=== PATIENT | male | born 1965 | race Caucasian/White ===

== ENCOUNTER → 2019-06-16 12:48 | Outpatient (CLI) | payer OTHER, SELFPAY ==
--- NOTE | 2019-06-17 16:05 | PM.PFT.1 ---
Pulmonary Function Test Referral & Results Date Patient Seen: 06/16/19 Requesting provider: Marie Garcia Indication: Dyspnea Results: The spirometry demonstrates an FVC of 5.98 L which is 104% of predicted. The FEV1 was measured at 4.89 L which is 111% of predicted. The FEV1/FVC ratio was 82 which is 106% of predicted. Following the administration of bronchodilator there was no appreciable change. Lung volumes show an SVC of 6.02 L which is 109% of predicted. The diffusing capacity was measured at 38.1 to which is 101% of predicted. The maximum voluntary ventilation was normal Interpretation: This study demonstrates normal pulmonary function
== END ==
PROVIDERS: PCP Family Medicine; Visit Provider Family Medicine
DX: R06.00 Dyspnea, unspecified (principal)
CPT/HCPCS: 94060; 94726; 94729

== ENCOUNTER → 2019-09-21 12:54 | Outpatient (CLI) | payer OTHER, SELFPAY ==
--- NOTE | 2019-09-21 12:57 | DI.RAD.S_ITS ---
PROCEDURE: XR LUMBAR SPINE MIN 4V INDICATIONS: Progressive axial low back pain TECHNIQUE: 5 views of the lumbar spine were acquired. COMPARISON: None. FINDINGS: Bones: 5 nonrib-bearing vertebrae are present. There is mild scoliotic bony alignment, angulated leftward at L2. No vertebral body compression fractures. There is moderate degenerative disc disease and facet osteoarthritis along the lumbosacral spine, best seen at L1-2 and L2-3. No suspicious bony lesions. Soft tissues: Overlying bowel gas pattern is normal. No suspicious soft tissue calcifications. Oblique images: No pars defects. IMPRESSION: Moderate degenerative disc disease and facet osteoarthritis along the lumbosacral spine, most prominent at the upper LS spine with mild associated levoscoliosis centered in this area. No trauma found. Dictated by: Kendell Parada M.D. on 09/21/2019 at 14:29 Approved by: Kendell Parada M.D. on 09/21/2019 at 14:30
== END ==
PROVIDERS: PCP Family Medicine; Visit Provider Physical Medicine & Rehabilitation
DX: M54.5 Low back pain (principal); M47.816 Spondylosis without myelopathy or radiculopathy, lumbar region; M47.817 Spondylosis without myelopathy or radiculopathy, lumbosacral region; M51.36 Other intervertebral disc degeneration, lumbar region; M41.86 Other forms of scoliosis, lumbar region; Z98.890 Other specified postprocedural states; Z87.19 Personal history of other diseases of the digestive system
CPT/HCPCS: 72110; 99214

== ENCOUNTER 2020-03-30 22:38 | Emergency (ER) | payer OTHER, SELFPAY ==
--- NOTE | 2020-03-30 22:51 | DI.CT.S_ITS ---
PROCEDURE: CT KIDNEY URETER BLADDER (KUB) INDICATIONS: Left flank pain TECHNIQUE: Noncontrast 5 mm thick sections acquired from the diaphragms to the symphysis. 5 mm thick coronal and sagittal reformats were then performed. For radiation dose reduction, the following was used: automated exposure control, adjustment of mA and/or kV according to patient size. COMPARISON: [facility], CR, XR LUMBAR SPINE MIN 4V, 09/21/2019, 13:06. [facility], , CT ABDOMEN/PELVIS WITH CONTRAST, 09/09/2018, 13:14. FINDINGS: Image quality: Excellent. Lung bases: Lung bases are clear. Heart size is normal. Urinary system: There is a 2 mm obstructing stone seen involving the distal left ureter at the left ureterovesicular junction. There is mild left-sided hydronephrosis and hydroureter. Mild left-sided perinephric fat stranding is seen. No nonobstructing stones are seen involving either kidney. Both kidneys are normal in size. Bladder wall thickness is normal; no calcified bladder stones. Other solid organs: Liver is normal in size. Gallbladder wall is not thickened. Pancreas is normal in contours. Spleen is normal in size. No adrenal nodules. Peritoneum and bowel: Unenhanced bowel loops demonstrate normal wall thickness and caliber. No free fluid or air. A normal appendix is incidentally noted. Nodes and vessels: No retroperitoneal or mesenteric adenopathy by size criteria. Aorta and inferior vena cava are normal in caliber. Abdominal wall: No ventral hernias. Pelvis: No free pelvic fluid. No inguinal hernias or adenopathy. Bones: No suspicious bony lesions. No vertebral body compression fractures. Moderate levoconvex lumbar scoliosis is seen. Degenerative changes are seen, which are most prominent involving the lumbar spine. IMPRESSION: 2 mm obstructing stone seen involving the left ureterovesicular junction, with associated left-sided hydroureter, hydronephrosis, and perinephric fat stranding. No nonobstructing kidney stones are seen. Incidental note is made of: Normal appendix Moderate levoconvex lumbar scoliosis. Note: No significant discrepancy from the preliminary report. Dictated by: Adam Hart M.D. on 03/31/2020 at 7:31 Approved by: Adam Hart M.D. on 03/31/2020 at 7:35
[2020-03-30] MEDS: KETOROLAC 60 MG/2 ML VIAL 15 MG IV (23:06)
[2020-03-30] MEDS: ONDANSETRON 4 MG/2 ML INJ IV (23:06)
[2020-03-30] MEDS: HYDROMORPHONE 0.5 MG INJ IV ×2 (23:07→23:13)
[2020-03-30 23:10] LABS: Add Manual Diff / Slide Review NO; Basophils Absolute Auto 400 /uL (0-100); Eosinophils Absolute Auto 200 /uL (0-450); Eosinophils Percent Auto 2.3 % (2-4); Hematocrit 43.6 % (41-53); Lymphocytes Absolute Auto 2000 /uL (1100-4500); Lymphocytes Percent Auto 18.5 % (25-40); Mean Corpuscular HGB Conc 34.4 % (30-36); Mean Corpuscular Hemoglobin 30.8 PG (26-34); Mean Corpuscular Volume 89.6 fL (80-100); Monocytes Absolute Auto 1000 /uL (0-900); Monocytes Percent Auto 9.1 % (3-14); Neutrophils Absolute Auto 7200 /uL (1500-7000); Neutrophils Percent Auto 66.1 % (50-75); Platelet Count 303 X10^3/uL (150-400); Red Blood Cell Count 4.86 X10^6/uL (4.5-5.9); Red Cell Distribution Width 12.7 % (11.6-14.8); White Blood Cell Count 10.9 X10^3/uL (4.5-11.0)
[2020-03-30] MEDS: SODIUM CHLORIDE 0.9% 1,000 ML 1000 ML IV (23:15)
[2020-03-30 23:17] VITALS: BP 117/72; PULSE 62; RESP 18; TEMP 36.2; O2SAT 100; BMI 32.1
[2020-03-30 23:28] VITALS: PULSE 63; O2SAT 93
[2020-03-30 23:29] LABS: Lipase 92 U/L (23-300)
[2020-03-30 23:30] VITALS: PULSE 67; O2SAT 95
[2020-03-30 23:37] VITALS: BP 145/80; PULSE 62; O2SAT 99
[2020-03-30 23:42] LABS: Alanine Aminotransferase 263 IU/L (<50); Albumin 4.5 g/dL (3.5-5.0); Albumin Globulin Ratio 1.9 (1.0-2.8); Alkaline Phosphatase 88 U/L (38-126); Aspartate Aminotransferase 80 IU/L (17-59); BUN Creatinine Ratio 21.8 (6-22); Bilirubin Total 0.7 mg/dL (0.2-1.3); Blood Urea Nitrogen 22 mg/dL (9-20); Calcium 9.5 mg/dL (8.4-10.2); Carbon Dioxide 26 mmol/L (22-32); Chloride 105 mmol/L (98-107); Estimated Glomerular Filt Rate > 60.0 mL/min (>60); Globulin 2.4 g/dL (1.7-4.1); Glucose 121 mg/dL (70-100); HEMOLYSIS 21 (0-50); Potassium 3.4 mmol/L (3.4-5.1); Sodium 137 mmol/L (137-145); Total Protein 6.9 g/dL (6.3-8.2)
[2020-03-30] MEDS: HYDROMORPHONE 1 MG INJ IV (23:56)
[2020-03-31] VITALS (7 sets, daily range): BP systolic 130–158; BP diastolic 74–88; PULSE 64–81; O2SAT 95–100
--- NOTE | 2020-03-31 01:37 | ED.ABDPAIN ---
HPI - Abdominal Pain General Chief Complaint: Abdominal Pain Stated Complaint: left side lwr abdominal pain, vomiting,hard stool Time Seen by Provider: 03/30/20 22:50 Source: patient and family Mode of arrival: Wheelchair Limitations: no limitations History of Present Illness HPI narrative: 54-year-old man with a history of chronic back pain and hypertension with acute onset severe left flank and left lower quadrant abdominal pain approximately 2 hours prior to arrival. It is not associated with trauma, fever, chills, dysuria, diarrhea, chest pain. He is having shortness of breath but that is related to the severity of the pain. Related Data Home Medications Medication Instructions Recorded Confirmed VirMax PO DAILY 09/21/19 acetaminophen 500 mg capsule 500 mg PO TID-QID PRN cap 09/21/19 09/21/19 ascorbic acid (vitamin C) 250 mg 240 mg PO DAILY tab 09/21/19 09/21/19 chewable tablet coenzyme Q10 75 mg capsule 100 mg PO DAILY cap 09/21/19 09/21/19 fiber well 5 gram PO DAILY 09/21/19 glucos sul [id number] PO DAILY 09/21/19 09/21/19 hydrochlorothiazide 12.5 mg capsule 12.5 mg PO DAILY 09/21/19 09/21/19 losartan 50 mg tablet 50 mg PO DAILY 09/21/19 09/21/19 mecobalamin (vitamin B12) 1,000 1,000 mcg SL DAILY 09/21/19 09/21/19 mcg disintegrating tablet,sublingual multivitamin 1 cap PO DAILY 09/21/19 09/21/19 Previous Rx's Medication Instructions Recorded diclofenac sodium 75 mg 75 mg PO BID #60 tab 01/09/20 tablet,delayed release oxycodone-acetaminophen 1 tab PO Q4-6H PRN #20 tab 03/31/20 tamsulosin 0.4 mg PO DAILY #30 cap 03/31/20 Allergies Allergy/AdvReac Type Severity Reaction Status Date / Time No Known Drug Allergies Allergy Verified 03/30/20 23:10 Review of Systems Review of Systems Narrative: Pertinent positive and negative findings as per HPI Remainder of review of systems is otherwise unremarkable for Constitutional: Fevers, chills, weakness ENT: No sore throat, neck pain, ear pain CV: Chest pain, palpitations, dyspnea on exertion Respiratory: Cough, wheeze, dyspnea GI: Nausea, vomiting, diarrhea, change in bowel habits, black or bloody stools Patient History Medical History Facet arthropathy, lumbosacral (Acute) Scoliosis (Acute) Surgical History History of hernia repair (Acute) History of hernia surgery (Acute) History of thumb surgery (Acute) History of wisdom tooth extraction (Acute) Status post excision of lipoma (Acute) Status post right foot surgery (Acute) Family History Father No problems noted. Mother Hypertension Social History marital status: Smoking Status: Former smoker alcohol intake: former substance use type: does not use Smoking Status: Former smoker Substance Use Type: does not use Exam Narrative Exam Narrative: General: Healthy appearing, severe distress unable to participate in history due to pain Neck: supple Respiratory: Lungs are clear to auscultation, no wheezing no rales no rhonchi. Full and symmetrical air movement Cardiac: Regular rate and rhythm no murmurs no bruits Abdomen: Soft, mildly distended, absent bowel tones, left flank pain with left lower quadrant pain. No rebound or guarding Skin: Diaphoretic, no rashes Neurologic: Grossly neurologically intact with no obvious asymmetries or abnormalities Extremities: No trauma, well perfused Initial Vital Signs Initial Vital Signs: Vital Signs Temperature 97.2 F L 03/30/20 23:17 Pulse Rate 62 03/30/20 23:17 Respiratory Rate 18 03/30/20 23:17 Blood Pressure 117/72 03/30/20 23:17 Pulse Oximetry 100 03/30/20 23:17 Course Orders Ordered: ED Orders 03/30/20 22:51 CT kidney ureter bladder (KUB) Stat 03/30/20 23:00 Complete Blood Count AUTO DIFF Stat Comprehensive Metabolic Panel Stat Lipase Stat Hydromorphone HCl (Dilaudid) 0.5 mg IV PRN PRN PRN Reason: Pain, Moderate (4-6) Last Admin: 03/30/20 23:13 Dose: 0.5 mg Documented by: Admin: 03/30/20 23:07 Dose: 0.5 mg Documented by: JONG Discontinued Medications Hydromorphone HCl (Dilaudid) 1 mg IV NOW ONE Stop: 03/30/20 23:52 Last Admin: 03/30/20 23:56 Dose: 1 mg Documented by: JONG Hydromorphone HCl (Dilaudid) 1 mg IV NOW ONE Stop: 03/31/20 01:29 Last Admin: 03/31/20 01:38 Dose: 1 mg Documented by: JONG Hydromorphone HCl (Dilaudid) 1 mg IV NOW ONE Stop: 03/31/20 01:33 Last Admin: 03/31/20 01:41 Dose: Not Given Documented by: JONG Sodium Chloride (Normal Saline 0.9%) 1,000 mls @ 1,000 mls/hr IV BOLUS ONE Stop: 03/30/20 23:49 Last Infusion: 03/31/20 00:37 Dose: 0 mls/hr Documented by: Admin: 03/30/20 23:15 Dose: 1,000 mls/hr Documented by: JONG Ketorolac Tromethamine (Toradol) 15 mg IV NOW ONE Stop: 03/30/20 22:51 Last Admin: 03/30/20 23:06 Dose: 15 mg Documented by: JONG Ondansetron HCl (Zofran) 4 mg IV NOW ONE Stop: 03/30/20 22:51 Last Admin: 03/30/20 23:06 Dose: 4 mg Documented by: JONG Ondansetron HCl (Zofran) 4 mg IV NOW ONE Stop: 03/31/20 01:39 Last Admin: 03/31/20 01:40 Dose: 4 mg Documented by: JONG Oxycodone/Acetaminophen (Percocet 5/325) 2 tab PO NOW ONE Stop: 03/31/20 02:10 Last Admin: 03/31/20 02:12 Dose: 2 tab Documented by: JONG Tamsulosin HCl (Flomax) 0.4 mg PO NOW ONE Stop: 03/31/20 01:33 Last Admin: 03/31/20 01:38 Dose: 0.4 mg Documented by: JONG Vital Signs Vital signs: Vital Signs - 8 hr 03/30/20 23:17 03/30/20 23:28 03/30/20 23:30 Temperature 97.2 F L Pulse Rate 62 63 67 Respiratory Rate 18 Blood Pressure 117/72 Pulse Oximetry 100 93 95 03/30/20 23:37 03/31/20 00:00 03/31/20 00:30 Temperature Pulse Rate 62 65 65 Respiratory Rate Blood Pressure 145/80 H 132/85 141/82 H Pulse Oximetry 99 95 100 03/31/20 01:00 03/31/20 01:30 03/31/20 02:00 Temperature Pulse Rate 64 81 69 Respiratory Rate Blood Pressure 144/88 H 158/80 H 130/74 Pulse Oximetry 100 100 96 03/31/20 02:30 Temperature Pulse Rate 65 Respiratory Rate Blood Pressure 131/75 Pulse Oximetry 96 MDM - Abdominal Pain Medical Records Attestation: I reviewed the patient's medical records. Lab Data Attestation: I reviewed the patient's lab results. Result diagrams: 03/30/20 23:00 03/30/20 23:00 Labs: Lab Results 03/30/20 03/30/20 03/30/20 Range/Units 23:00 23:00 23:00 WBC 10.9 (4.5-11.0) X10^3/uL RBC 4.86 (4.5-5.9) X10^6/uL Hgb 15.0 (13.5-17.5) g/dL Hct 43.6 (41-53) % MCV 89.6 (80-100) fL MCH 30.8 (26-34) PG MCHC 34.4 (30-36) % RDW 12.7 (11.6-14.8) % Plt Count 303 (150-400) X10^3/uL Neut % (Auto) 66.1 (50-75) % Lymph % (Auto) 18.5 L (25-40) % [place] % (Auto) 9.1 (3-14) % Eos % (Auto) 2.3 (2-4) % Baso % (Auto) 4.0 H (0-2) % Neut # (Auto) 7200 H (4964-6982) /uL Lymph # (Auto) 2000 (4960-6437) /uL [place] # (Auto) 1000 H (0-900) /uL Eos # (Auto) 200 (0-450) /uL Baso # (Auto) 400 H (0-100) /uL Sodium 137 (137-145) mmol/L Potassium 3.4 (3.4-5.1) mmol/L Chloride 105 (98-107) mmol/L Carbon Dioxide 26 (22-32) mmol/L BUN 22 H (9-20) mg/dL Creatinine 1.01 (0.66-1.25) mg/dL Estimated GFR > 60.0 (>60) mL/min BUN/Creatinine Ratio 21.8 (6-22) Glucose 121 H (70-100) mg/dL Calcium 9.5 (8.4-10.2) mg/dL Total Bilirubin 0.7 (0.2-1.3) mg/dL AST 80 H (17-59) IU/L ALT 263 H (<50) IU/L Alkaline Phosphatase 88 (38-126) U/L Total Protein 6.9 (6.3-8.2) g/dL Albumin 4.5 (3.5-5.0) g/dL Globulin 2.4 (1.7-4.1) g/dL Albumin/Globulin Ratio 1.9 (1.0-2.8) Lipase 92 (23-300) U/L Imaging Data CT scan - abdomen/pelvis: Radiologist's Impression: Mild left hydroureteronephrosis secondary to a 2 mm calculus in the distal left ureter Electronically signed March 31, 2020 12:[address] Faina Machado [facility] Narrative Medical decision making narrative: 54-year-old gentleman presents with acute severe left flank left lower quadrant pain with CT scan consistent with ureteral stone. Pain is controlled with fluids, Toradol, Zofran and IV narcotics. There is no evidence of acute infection. He is able to eat and drink. He is safe for home discharge. Will send mom with a strainer and prescription for pain medications as well as follow-up with his primary care physician recommended. Safe for home discharge Discharge Plan Departure Patient Disposition: Home Clinical Impression: Ureterolithiasis Instructions: DI for Kidney Stones Activity Restrictions/Additional Instructions: Thank you for coming in today You have a 2 mm kidney stone on the left side. It is almost ready to drop into your bladder. There are no signs of infection and no signs of kidney dysfunction. Please continue the diclofenac that you are currently using for back pain as prescribed by Dr. Bailey. For pain not controlled by this, you can use 1-2 Percocet every 4-6 hours. Percocet is a narcotic and will cause constipation. Make sure your taking extra fiber or using a stool softener daily to prevent constipation. I am going to put you on Flomax, 0.4 mg daily to try and help the stone pass more easily. 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 Please strain your urine over the next couple of days until you see the kidney stone come out. At that point you can stop the Flomax. If you have severe recurrent pain with emesis and are unable to take your oral pain medication it would be appropriate to return to the emergency department Please follow-up with your primary care physician Prescriptions: New oxycodone-acetaminophen 5-300 mg tablet 1 tab PO Q4-6H PRN (Reason: pain) Qty: 20 RF: 0 tamsulosin 0.4 mg capsule 0.4 mg PO DAILY Qty: 30 RF: 0 No Action diclofenac sodium 75 mg tablet,delayed release (DR/EC) 75 mg PO BID Qty: 60 RF: 2 hydrochlorothiazide 12.5 mg capsule 12.5 mg PO DAILY RF: 0 losartan 50 mg tablet 50 mg PO DAILY RF: 0 acetaminophen 500 mg capsule 500 mg PO TID-QID PRNRF: 0 fiber well 5 gram PO DAILY RF: 0 multivitamin Capsule 1 cap PO DAILY RF: 0 mecobalamin (vitamin B12) 1,000 mcg tablet,disintegrating 1,000 mcg SL DAILY RF: 0 ascorbic acid (vitamin C) 250 mg tablet,chewable 240 mg PO DAILY RF: 0 Ultra CoQ10 75 mg capsule 100 mg PO DAILY RF: 0 glucos sul [id number]-[id number]-C-Mn PO DAILY RF: 0 VirMax PO DAILY RF: 0 Referrals: Marie Garcia MD [Primary Care Provider] -
[2020-03-31] MEDS: HYDROMORPHONE 1 MG INJ IV (01:38)
[2020-03-31] MEDS: TAMSULOSIN 0.4 MG CAPSULE PO (01:38)
[2020-03-31] MEDS: ONDANSETRON 4 MG/2 ML INJ IV (01:40)
[2020-03-31] MEDS: OXYCODONE/ACETAMINOPHEN 5/325 TABLET 2 TAB PO (02:12)
== END 2020-03-31 03:38 | disposition home or self-care (01) ==
PROVIDERS: Emergency Provider Emergency Medicine; PCP Family Medicine
DX: N20.1 Calculus of ureter (principal); R06.02 Shortness of breath; I10 Essential (primary) hypertension
CPT/HCPCS: 36415; 74176; 80053; 83690; 85025; 96361; 96374; 96375; 96376; 99284; J1170; J1885; J2405

== ENCOUNTER 2022-03-31 21:32 | Emergency (ER) | payer OTHER, SELFPAY ==
[2022-03-31 21:40] VITALS: BP 132/87; PULSE 69; RESP 16; TEMP 36.6; O2SAT 98; BMI 32.1
--- NOTE | 2022-03-31 21:43 | ED_ITS ---
HPI - Chest Pain General Chief Complaint: Chest Pain Stated Complaint: Chest Pain, radiates to right arm and back Time Seen by Provider: 03/31/22 21:43 History of Present Illness HPI narrative: 56-year-old male former smoker without any significant chronic medical problems presents with a chief complaint of about 2 weeks of right-sided chest pain which radiates into his shoulder and back. He denies any dizziness, weakness or lightheadedness. Denies unexplained diaphoresis, nausea or vomiting. He denies any increased symptoms with exertion, stating the only worsening of his pain is associated with turning his neck to the right or lifting his shoulder. He denies fever or chills. He states he had a similar occurrence a while back but it was the left side of his chest. He had received a referral to Cardiology but has yet to follow up. He denies any recent travel, history of blood clot or known cancer. Related Data Home Medications Medication Instructions Recorded Confirmed VirMax PO DAILY 09/21/19 acetaminophen 500 mg capsule 500 mg PO TID-QID PRN 09/21/19 09/21/19 ascorbic acid (vitamin C) 250 mg 240 mg PO DAILY 09/21/19 09/21/19 chewable tablet coenzyme Q10 75 mg capsule (Ultra 100 mg PO DAILY 09/21/19 09/21/19 CoQ10) fiber well 5 gram PO DAILY 09/21/19 glucos sul [id number] PO DAILY 09/21/19 09/21/19 [Glucosamine Chondroitin] hydrochlorothiazide 12.5 mg capsule 12.5 mg PO DAILY 09/21/19 09/21/19 losartan 50 mg tablet 50 mg PO DAILY 09/21/19 09/21/19 mecobalamin (vitamin B12) 1,000 1,000 mcg sublingual DAILY 09/21/19 09/21/19 mcg disintegrating tablet,sublingual multivitamin 1 cap PO DAILY 09/21/19 09/21/19 Previous Rx's Medication Instructions Recorded oxycodone-acetaminophen 5 mg-300 1 tab PO Q4-6H PRN pain #20 tabs 03/31/20 mg tablet oxycodone-acetaminophen 5 mg-325 1 tab PO Q4-6H PRN pain #20 tabs 03/31/20 mg tablet (Percocet) tamsulosin 0.4 mg capsule 0.4 mg PO DAILY #30 caps 03/31/20 diclofenac sodium 75 mg 75 mg PO BID #60 tabs 07/02/20 tablet,delayed release cyclobenzaprine 10 mg tablet 10 mg PO TID PRN muscle spasm #14 04/01/22 tabs ketorolac 10 mg tablet 10 mg PO Q6H PRN pain #14 tabs 04/01/22 Allergies Allergy/AdvReac Type Severity Reaction Status Date / Time No Known Drug Allergies Allergy Verified 03/30/20 23:10 Review of Systems Review of Systems Narrative: GENERAL: Denies chills, fatigue, malaise, fever, sweats. HEENT: Denies sinus pain, ear pain, sore throat, difficulty swallowing, dizziness. RESPIRATORY: See HPI CARDIOVASCULAR: See HPI GASTROINTESTINAL: Denies nausea, vomiting, abdominal pain, diarrhea, constipa tion, melena. : Denies dysuria, frequency, incontinence, hematuria, urinary retention. MUSCULOSKELETAL: denies weakness, joint pain, or bony pain SKIN: Denies rash, skin lesions, or other NEUROLOGIC: Denies weakness, headache, numbness, change in speech, confusion, seizures, incoordination. PSYCHIATRIC: No concerning psychosocial issues. 12 point review of systems is negative except for those stated above Patient History Medical History (Updated 04/16/22 @ 00:00 by ) Facet arthropathy, lumbosacral Scoliosis Surgical History History of hernia repair History of hernia surgery History of thumb surgery History of wisdom tooth extraction Status post excision of lipoma Status post right foot surgery Family History Father No problems noted. Mother Hypertension Social History marital status: Smoking Status: Former smoker alcohol intake: former substance use type: does not use Smoking Status: Former smoker Substance Use Type: does not use Exam Narrative Exam Narrative: GENERAL: [56] year old patient appears stated age. Well-developed patient, in mild distress. HEAD: Atraumatic. Normocephalic. EYES: Pupils equal round and reactive. Extraocular motions intact. No scleral icterus. No injection or drainage. ENT: Nose without bleeding, purulent drainage. Throat without erythema, ton sillar hypertrophy or exudate. Airway patent. NECK: Trachea midline. Non tender CARDIOVASCULAR: Regular rate and rhythm without murmurs, gallops, or rubs. RESPIRATORY: Clear to auscultation. Breath sounds equal bilaterally. No wheezes, rales, or rhonchi. GASTROINTESTINAL: Abdomen soft, non-tender, nondistended. EXTREMITIES: No edema or joint tenderness. BACK: Nontender without deformity or crepitance. No flank tenderness. NEURO: AOx3. SKIN: No rash or erythema of visible areas Initial Vital Signs Initial Vital Signs: Vital Signs Temperature 97.9 F 03/31/22 21:40 Pulse Rate 69 03/31/22 21:40 Respiratory Rate 16 03/31/22 21:40 Blood Pressure 132/87 03/31/22 21:40 Pulse Oximetry 98 03/31/22 21:40 Oxygen Delivery Method 03/31/22 21:40 Scores HEART Score Heart Score history: Slightly Suspicious Heart Score EKG: Normal Heart Score Age: 45-64 years old Heart Score risk factors: No known risk factors Heart Score troponin: < or = to normal limit Heart Score Total: 1 Course Orders Ordered: Discontinued Medications Morphine Sulfate (Morphine 4 Mg/Ml Inj) 4 mg IV NOW ONE Stop: 03/31/22 22:12 Last Admin: 03/31/22 22:15 Dose: 4 mg Documented By: DIPESH Nitroglycerin (Nitroglycerin 0.4 Mg Sl Tab) 0.4 mg SL NOW ONE Stop: 04/01/22 02:56 Last Admin: 04/01/22 03:13 Dose: 0.4 mg Documented By: LALITHA Ondansetron HCl (Ondansetron 4 Mg/2 Ml Inj) 4 mg IV NOW ONE Stop: 03/31/22 22:12 Last Admin: 03/31/22 22:15 Dose: 4 mg Documented By: DIPESH Vital Signs Vital signs: Vital Signs - 8 hr 03/31/22 22:19 03/31/22 22:47 03/31/22 23:00 Pulse Rate 71 68 72 Respiratory Rate 15 18 Blood Pressure 125/85 Pulse Oximetry 100 92 03/31/22 23:01 03/31/22 23:01 03/31/22 23:30 Pulse Rate 71 Respiratory Rate 24 Blood Pressure 125/83 134/80 Pulse Oximetry 93 03/31/22 23:30 04/01/22 00:00 04/01/22 00:01 Pulse Rate 63 84 67 Respiratory Rate 14 26 H 23 Blood Pressure Pulse Oximetry 99 97 04/01/22 00:02 04/01/22 00:02 04/01/22 00:30 Pulse Rate 64 61 Respiratory Rate 17 13 Blood Pressure 157/89 H Pulse Oximetry 100 98 04/01/22 01:00 04/01/22 01:30 04/01/22 02:00 Pulse Rate 61 60 65 Respiratory Rate 15 14 Blood Pressure Pulse Oximetry 99 99 98 04/01/22 02:30 04/01/22 03:00 04/01/22 03:14 Pulse Rate 82 63 Respiratory Rate 21 25 H Blood Pressure 135/80 Pulse Oximetry 98 98 04/01/22 03:14 04/01/22 03:25 04/01/22 03:25 Pulse Rate 61 Respiratory Rate 14 15 Blood Pressure 119/71 Pulse Oximetry 98 97 04/01/22 03:30 04/01/22 04:00 04/01/22 04:00 Pulse Rate 63 58 L Respiratory Rate 16 16 Blood Pressure 128/79 Pulse Oximetry 99 99 04/01/22 04:30 04/01/22 05:00 04/01/22 05:30 Pulse Rate 54 L 55 L 55 L Respiratory Rate 12 13 12 Blood Pressure Pulse Oximetry 98 98 97 MDM - Chest Pain Lab Data Result diagrams: 03/31/22 22:08 03/31/22 22:08 Labs: Lab Results 03/31/22 03/31/22 03/31/22 Range/Units 22:08 22:08 22:08 WBC 10.8 (4.5-11.0) X10^3/uL RBC 4.92 (4.5-5.9) X10^6/uL Hgb 15.2 (13.5-17.5) g/dL Hct 43.7 (41-53) % MCV 88.9 (80-100) fL MCH 31.0 (26-34) PG MCHC 34.8 (30-36) % RDW 12.7 (11.6-14.8) % Plt Count 312 (150-400) X10^3/uL Neut % (Auto) 50.0 (50-75) % Lymph % (Auto) 37.1 (25-40) % Grady % (Auto) 9.2 (3-14) % Eos % (Auto) 3.0 (2-4) % Baso % (Auto) 0.7 (0-2) % Neut # (Auto) 5400 (2623-8247) /uL Lymph # (Auto) 4000 (3564-0148) /uL Grady # (Auto) 1000 H (0-900) /uL Eos # (Auto) 300 (0-450) /uL Baso # (Auto) 100 (0-100) /uL D-Dimer < 200 (<230) ng/mL Sodium 139 (137-145) mmol/L Potassium 3.4 (3.4-5.1) mmol/L Chloride 103 (98-107) mmol/L Carbon Dioxide 26 (22-32) mmol/L BUN 13 (9-20) mg/dL Creatinine 0.79 (0.66-1.25) mg/dL Estimated GFR > 60 (>60) mL/min BUN/Creatinine Ratio 16.5 (6-22) Glucose 100 (70-100) mg/dL Calcium 9.0 (8.4-10.2) mg/dL Magnesium 2.2 (1.6-2.3) mg/dL Total Bilirubin 0.5 (0.2-1.3) mg/dL AST 34 (17-59) IU/L ALT 45 (<50) IU/L Alkaline Phosphatase 81 (38-126) U/L Total Creatine Kinase 346 H (55-170) U/L CK-MB (CK-2) 7.61 H (<2.37) ng/mL CK-MB (CK-2) Rel Index 2.2 (1.5-5.0) % Troponin I 0.016 (0.01-0.034) ng/mL Total Protein 7.4 (6.3-8.2) g/dL Albumin 4.6 (3.5-5.0) g/dL Globulin 2.8 (1.7-4.1) g/dL Albumin/Globulin Ratio 1.6 (1.0-2.8) Lipase 63 (23-300) U/L 04/01/22 04/01/22 Range/Units 00:22 05:10 WBC (4.5-11.0) X10^3/uL RBC (4.5-5.9) X10^6/uL Hgb (13.5-17.5) g/dL Hct (41-53) % MCV (80-100) fL MCH (26-34) PG MCHC (30-36) % RDW (11.6-14.8) % Plt Count (150-400) X10^3/uL Neut % (Auto) (50-75) % Lymph % (Auto) (25-40) % Grady % (Auto) (3-14) % Eos % (Auto) (2-4) % Baso % (Auto) (0-2) % Neut # (Auto) (9436-7071) /uL Lymph # (Auto) (7758-7788) /uL Grady # (Auto) (0-900) /uL Eos # (Auto) (0-450) /uL Baso # (Auto) (0-100) /uL D-Dimer (<230) ng/mL Sodium (137-145) mmol/L Potassium (3.4-5.1) mmol/L Chloride (98-107) mmol/L Carbon Dioxide (22-32) mmol/L BUN (9-20) mg/dL Creatinine (0.66-1.25) mg/dL Estimated GFR (>60) mL/min BUN/Creatinine Ratio (6-22) Glucose (70-100) mg/dL Calcium (8.4-10.2) mg/dL Magnesium (1.6-2.3) mg/dL Total Bilirubin (0.2-1.3) mg/dL AST (17-59) IU/L ALT (<50) IU/L Alkaline Phosphatase (38-126) U/L Total Creatine Kinase 311 H 246 H (55-170) U/L CK-MB (CK-2) 6.72 H 5.87 H (<2.37) ng/mL CK-MB (CK-2) Rel Index 2.2 2.4 (1.5-5.0) % Troponin I 0.014 0.015 (0.01-0.034) ng/mL Total Protein (6.3-8.2) g/dL Albumin (3.5-5.0) g/dL Globulin (1.7-4.1) g/dL Albumin/Globulin Ratio (1.0-2.8) Lipase (23-300) U/L ECG Data Interpretation: MDM Narrative Medical decision making narrative: Multiple causes of chest pain considered including NV, PE, pneumothorax, pneumonia, aortic dissection, and pleurisy. Patient reports no radiation, no diaphoresis, no provocation with exertion, and no vomiting Heart score is low, multiple EKGs showed no occlusive findings, 3 troponins negative, furthermore pain has been present for 2 weeks and is reproducible when the patient turns his head to the right or lays on his right side. Pulmonary embolism considered but thought unlikely given lack of classic history, physical or findings on imaging. Dissection and aneurysm considered but no evidence on imaging. Patient's symptoms improved over duration of stay with above-stated therapies. Findings and discharge diagnosis discussed with patient/family followed by verbalization of understanding Return precautions discussed with patient/family whom verbalize understanding. Discharge Plan Departure Patient Disposition: Home Clinical Impression: Atypical chest pain Instructions: DI for Atypical Chest Pain Activity Restrictions/Additional Instructions: *You have been diagnosed with [atypical chest pain. As we discussed your history and physical exam as well as multiple EKGs, labs and imaging would suggest against classic cardiac ischemia, blood clot in your chest, aneurysm, dissection or other significant or life-threatening diagnosis that would require a specific or immediate intervention] *What to do: *Please continue to take your regular medications as directed. [x ] New medication prescriptions sent to your pharmacy: [DOD ] [ ] New medication written as a paper prescription [ ] No new medications given *Please follow up with your primary care provider in 2-3 days, call for an appointment. Let them know you were seen in the Emergency Department and that we ask that you be seen in follow up. We will electronically transmit a record of today's note if your PCP is in our system *If you do not have a primary care provider please contact the [facility] Resource line at [phone]. They will ask some questions about your medical history and help get you set up with a doctor in the community. *Return to Emergency Department if you should have any new, worsening or concerning symptoms, such as [fever greater than 101 F, shaking chills, worsening pain, persistent vomiting or other bothersome symptoms] Prescriptions: New ketorolac 10 mg tablet 10 mg PO Q6H PRN (Reason: pain) Qty: 14 0RF cyclobenzaprine 10 mg tablet 10 mg PO TID PRN (Reason: muscle spasm) Qty: 14 0RF No Action diclofenac sodium 75 mg tablet,delayed release (DR/EC) 75 mg PO BID Qty: 60 2RF oxycodone-acetaminophen 5-300 mg tablet 1 tab PO Q4-6H PRN (Reason: pain) Qty: 20 0RF tamsulosin 0.4 mg capsule 0.4 mg PO DAILY Qty: 30 0RF oxycodone-acetaminophen [Percocet] 5-325 mg tablet 1 tab PO Q4-6H PRN (Reason: pain) Qty: 20 0RF hydrochlorothiazide 12.5 mg capsule 12.5 mg PO DAILY losartan 50 mg tablet 50 mg PO DAILY acetaminophen 500 mg capsule 500 mg PO TID-QID PRN fiber well 5 gram PO DAILY multivitamin Capsule 1 cap PO DAILY mecobalamin (vitamin B12) 1,000 mcg tablet,disintegrating 1,000 mcg SL DAILY ascorbic acid (vitamin C) 250 mg tablet,chewable 240 mg PO DAILY Ultra CoQ10 75 mg capsule 100 mg PO DAILY glucos sul [id number] PO DAILY VirMax PO DAILY Referrals: Marie Garcia MD [Primary Care Provider] - Visit Report Forms: Patient Portal/API
--- NOTE | 2022-03-31 22:12 | DI.CT.S_ITS ---
PROCEDURE: CT ANGIO CHEST ABDOMEN PELVIS INDICATIONS: severe right sided chest pain, radiation to the back TECHNIQUE: Precontrast 5 mm thick sections acquired from the lung apices to the iliac crests. After the administration of intravenous contrast, 2.5 mm thick sections again acquired from the lung apices to the iliac crests. Maximum intensity projection (MIP) oblique sagittal and coronal reformats were then acquired. For radiation dose reduction, the following was used: automated exposure control. COMPARISON: [facility], , CT ABDOMEN/PELVIS WITH CONTRAST, 09/09/2018, 13:14. FINDINGS: Image quality: Excellent. AORTA: Noncontrast images demonstrate no evidence of intramural hematoma. The aorta is normal in caliber and contour without intimal flaps to suggest dissection. There is conventional branching of the aortic arch. The visualized great vessels are normal in caliber and appear patent. The celiac, superior mesenteric, and inferior mesenteric arteries are patent. There is a small accessory left renal artery. The renal arteries appear patent bilaterally. The common, external, and internal iliac arteries appear patent. The common femoral and visualized proximal superficial femoral arteries appear patent. CHEST: Lower Neck: No lymphadenopathy by size criteria. Thyroid: Visualized thyroid demonstrates no discrete nodules. Axillae: No lymphadenopathy by size criteria. Chest Wall: Unremarkable. Bones: Visualized osseous structures demonstrate no suspicious lesions. Lungs and Airways: No acute consolidation. There are few scattered pulmonary nodules. These include a few right upper lobe nodules along the minor fissure measuring up to 0.8 cm on series 7, image 144 and 0.5 cm on series 7, image 149. In the left upper lobe, a 0.3 cm nodule is present on series 7, image 121. The trachea and central airways are patent. Pleura: No pneumothorax or pleural effusions. Heart: Heart size is normal. No pericardial effusion. Pulmonary arteries: The pulmonary arteries are normal in size and demonstrate no filling defects to suggest central pulmonary embolism. Evaluation of distal subsegmental pulmonary arteries is limited due to technique. Mediastinum and Tashia: No lymphadenopathy by size criteria. Esophagus: No wall thickening. No hiatal hernia. ABDOMEN: Liver: No mass lesion. There is mild reflux of contrast into the hepatic veins suggestive of elevated right heart filling pressures. Gallbladder: Within normal limits without calcified gallstones. Biliary ducts: No biliary ductal dilatation. Pancreas: Unremarkable. Spleen: Normal in size. Adrenal Glands: No adrenal nodules. Kidneys and Ureters: No hydronephrosis. Stomach and Bowel: Stomach, small bowel loops, and colon are normal in caliber and wall thickness. The appendix is normal in appearance. There is colonic diverticulosis without acute diverticulitis. Peritoneum: No abnormal intraperitoneal fluid. No free air. Ventral Wall: No hernia. Abdominal Nodes: No retroperitoneal or mesenteric adenopathy by size criteria. Vessels: Aorta and inferior vena cava are normal in size. PELVIS: Pelvic Organs: Unremarkable. Bladder: Unremarkable. Pelvic Nodes: No enlarged lymph nodes. Miscellaneous: No inguinal hernias are seen. Bones: Visualized osseous structures demonstrate no suspicious focal lesions. There is multilevel degenerative disc disease throughout the thoracic and lumbar spine including moderate degeneration within the upper lumbar spine. There is also moderate facet arthropathy in the lower lumbar spine. There is a mild leftward curvature in the lumbar spine centered at L2. IMPRESSION: 1. No evidence of aortic aneurysm or dissection. 2. No evidence of central pulmonary embolism. 3. No acute airspace consolidation. 4. Small bilateral pulmonary nodules measuring up to 0.8 cm in the right upper lobe. These were not included on the prior abdominal CT studies. Recommend follow-up in 6-12 months to demonstrate stability if clinically indicated. Dictated by: Brendon Multani M.D. on 03/31/2022 at 23:14 Approved by: Brendon Multani M.D. on 03/31/2022 at 23:23
[2022-03-31] MEDS: MORPHINE 4 MG/ML INJ IV (22:15)
[2022-03-31] MEDS: ONDANSETRON 4 MG/2 ML INJ IV (22:15)
--- NOTE | 2022-03-31 22:17 | PC.NURSE ---
Pt stated that he's allergic to needles, has passed out in the past from needle stick. During IV insertion, pt lost consciousness momentarily, then recovered but complained of severe, worsening pain to R chest/armpit. Dr Hernandez called to bedside, pt evaluated and orders received. Pt is currntly awake, alert, with vital signs stable.
[2022-03-31 22:19] VITALS: BP 125/85; PULSE 71
[2022-03-31 22:19] LABS: Add Manual Diff / Slide Review NO; Basophils Absolute Auto 100 /uL (0-100); Basophils Percent Auto 0.7 % (0-2); Eosinophils Absolute Auto 300 /uL (0-450); Hematocrit 43.7 % (41-53); Hemoglobin 15.2 g/dL (13.5-17.5); Lymphocytes Absolute Auto 4000 /uL (1100-4500); Lymphocytes Percent Auto 37.1 % (25-40); Mean Corpuscular HGB Conc 34.8 % (30-36); Mean Corpuscular Volume 88.9 fL (80-100); Monocytes Absolute Auto 1000 /uL (0-900); Monocytes Percent Auto 9.2 % (3-14); Neutrophils Absolute Auto 5400 /uL (1500-7000); Platelet Count 312 X10^3/uL (150-400); Red Blood Cell Count 4.92 X10^6/uL (4.5-5.9); Red Cell Distribution Width 12.7 % (11.6-14.8); White Blood Cell Count 10.8 X10^3/uL (4.5-11.0)
[2022-03-31 22:27] LABS: D Dimer < 200 ng/mL (<230)
[2022-03-31 22:28] LABS: Alanine Aminotransferase 45 IU/L (<50); Albumin 4.6 g/dL (3.5-5.0); Albumin Globulin Ratio 1.6 (1.0-2.8); Alkaline Phosphatase 81 U/L (38-126); Aspartate Aminotransferase 34 IU/L (17-59); BUN Creatinine Ratio 16.5 (6-22); Bilirubin Total 0.5 mg/dL (0.2-1.3); Blood Urea Nitrogen 13 mg/dL (9-20); Carbon Dioxide 26 mmol/L (22-32); Chloride 103 mmol/L (98-107); Creatine Kinase 346 U/L (55-170); Estimated Glomerular Filt Rate > 60 mL/min (>60); Globulin 2.8 g/dL (1.7-4.1); Glucose 100 mg/dL (70-100); HEMOLYSIS 23 (0-50); Lipase 63 U/L (23-300); Magnesium 2.2 mg/dL (1.6-2.3); Potassium 3.4 mmol/L (3.4-5.1); Sodium 139 mmol/L (137-145); Total Protein 7.4 g/dL (6.3-8.2)
[2022-03-31 22:39] LABS: Troponin I 0.016 ng/mL (0.01-0.034)
[2022-03-31 22:43] LABS: CKMB % Relative Index 2.2 % (1.5-5.0); Creatine Kinase MB 7.61 ng/mL (<2.37)
[2022-03-31 22:47] VITALS: PULSE 68; RESP 15; O2SAT 100
[2022-03-31 23:00] VITALS: PULSE 72; RESP 18; O2SAT 92
[2022-03-31 23:01] VITALS: BP 125/83; PULSE 71; RESP 24; O2SAT 93
[2022-03-31 23:30] VITALS: BP 134/80; PULSE 63; RESP 14; O2SAT 99
[2022-04-01] VITALS (19 sets, daily range): BP systolic 119–159; BP diastolic 71–89; PULSE 53–84; RESP 12–26; O2SAT 97–100
[2022-04-01 01:07] LABS: Creatine Kinase 311 U/L (55-170)
[2022-04-01 01:20] LABS: Troponin I 0.014 ng/mL (0.01-0.034)
[2022-04-01 01:23] LABS: CKMB % Relative Index 2.2 % (1.5-5.0); Creatine Kinase MB 6.72 ng/mL (<2.37)
[2022-04-01] MEDS: NITROGLYCERIN 0.4 MG SL TAB SL (03:13)
[2022-04-01 05:26] LABS: Creatine Kinase 246 U/L (55-170)
[2022-04-01 05:40] LABS: Troponin I 0.015 ng/mL (0.01-0.034)
[2022-04-01 05:41] LABS: CKMB % Relative Index 2.4 % (1.5-5.0); Creatine Kinase MB 5.87 ng/mL (<2.37)
== END 2022-04-01 06:38 | disposition home or self-care (01) ==
PROVIDERS: Emergency Provider Emergency Medicine; PCP Family Medicine
DX: R07.89 Other chest pain (principal)
CPT/HCPCS: 36415; 71275; 74174; 80053; 82550; 82553; 83690; 83735; 84484; 85025; 85379; 93005; 96374; 96375; 99284; J2270; J2405; Q9967

== ENCOUNTER → 2022-09-04 16:31 | Outpatient (CLI) | payer OTHER, SELFPAY ==
--- NOTE | 2022-09-04 16:32 | DI.RAD.S_ITS ---
PROCEDURE: XR CERVICAL SPINE 4V OR 5V INDICATIONS: NECK PAIN TECHNIQUE: 5 views of the cervical spine acquired. COMPARISON: None. FINDINGS: Bones: No fractures or dislocations to the C7 level. Oblique images demonstrate no bony foraminal stenoses. Multilevel disc space narrowing and endplate osteophyte formation. Facet hypertrophy throughout the mid and lower cervical spine. Soft tissues: No prevertebral soft tissue swelling. IMPRESSION: Multilevel degenerative disc and facet disease. No acute fracture. No osseous lesion. If symptoms and/or clinical suspicion for pathology persist, further assessment with repeat, or advanced imaging (e.g., CT, MRI, or bone scan) may be helpful for further assessment. Dictated by: Trupti Gonzalez M.D. on 09/04/2022 at 16:57 Approved by: Trupti oGnzalez M.D. on 09/04/2022 at 16:58
== END ==
PROVIDERS: PCP Family Medicine; Referring Provider Physical Medicine & Rehabilitation; Visit Provider Physical Medicine & Rehabilitation
DX: M50.320 Other cervical disc degeneration, mid-cervical region, unspecified level (principal); M47.812 Spondylosis without myelopathy or radiculopathy, cervical region
CPT/HCPCS: 72050

== ENCOUNTER 2022-09-16 08:25 | Outpatient (CLI) | payer OTHER, SELFPAY ==
[2022-09-16] VITALS (9 sets, daily range): BP systolic 111–122; BP diastolic 70–79; PULSE 62–78; RESP 10–20; TEMP 35.9; O2SAT 95–98
--- NOTE | 2022-09-16 08:26 | DI.RAD.S_ITS ---
PROCEDURE: PAIN C/T INTERLAMINAR INJECT INDICATIONS: SPINAL STENOSIS COMPARISON: [facility], CR, XR CERVICAL SPINE 4V OR 5V, 09/04/2022, 16:39. FINDINGS: Fluoroscopic spot filming was performed to verify placement of a spinal needle at the C6-C7 level, as labeled on the films. Appropriate location of the needle tip was confirmed by injection of iodinated contrast. IMPRESSION: No significant intraprocedural abnormality. Dictated by: Adam Hart M.D. on 09/16/2022 at 11:30 Approved by: Adam Hart M.D. on 09/16/2022 at 11:30
[2022-09-16] MEDS: IOPAMIDOL 15 ML VIAL 3 ML INJ (09:45)
[2022-09-16] MEDS: DEXAMETHASONE 10 MG/ML VIAL 30 MG INJ (09:47)
[2022-09-16] MEDS: MIDAZOLAM 2 MG/2 ML VIAL 4 MG IV (09:47)
[2022-09-16] MEDS: BUPIVACAINE 0.5% (PF) 10 ML VIAL 5 ML INJ (09:48)
--- NOTE | 2022-09-16 10:03 | P.PCN_ITS ---
Date/Time/Diagnoses Date of procedure: 09/16/22 Time of procedure: 10:03 Pre-procedure diagnosis: 1. CERVICAL STENOSIS, 2. CERVICAL HNP WITH UPPER EXTREMITY RADICULAR FEATURES Post-procedure diagnosis: same Procedure Notes Procedure: 1. FLUORSCOPICALLY GUIDED CONTRAST CONTROLLED INTERLAMINAR EPIDURAL STEROID INJECTION - C6/7 TL MERLY Indications: Emmanuel is referred for treatment of Cervical HNP with Upper Extremity Paresthesias. Physician: Ben Bailey Total Fluoroscopy time (seconds): 30 Total sedation minutes: 17 Complications: none Procedure in detail & Post-procedure care: FINDINGS Cervical Stenosis due to disc deterioration and nerve root irritation and nerve root irritation DESCRIPTION OF PROCEDURE Fluoroscopically guided, contrast-controlled C6/7 translaminar epidural steroid injection with conscious sedation. Following review of allergy and review of potential side effects and complications, including, but not necessarily limited to, infection, allergic re action, local tissue breakdown, temporary as well as permanent nerve injury, stroke, paralysis, and possible , the patient indicated that patient understood and agreed to proceed. An informed consent document was signed by the patient, witnessed by a nurse, and placed in the patient's chart. Additionally, other treatment options including modalities, medications, and physical therapy were reviewed with the patient. After review of previous anaesthesic history and IV conscious sedation the patient was deemed safe to proceed with today?s procedure with IV conscious sedation as ASA class II designation. Safety time-out was performed to confirm patient ID, procedure to be performed and site of procedure. IV sedation was accomplished with a combination of 4mg of Versed administered by the RN after DO order, titrated to patient comfort during the course of the procedure while the patient remained responsive to all verbal commands. In the prone position, following sterile prep and drape of the cervical region, the C6/7 translaminar space was identified fluoroscopically. The skin was anesthetized via a 25-gauge 1.5-inch needle with 1% lidocaine solution. At this point, a 25-gauge, 2.5-inch short bevel spinal needle was atraumatically introduced and advanced under fluoroscopic guidance into epidural space at the C6/7 translaminar space. Depth was confirmed on lateral view. Radiological data, including multiple fluoroscopic views of the cervical spine, reveal a spinal needle at the C6/7 translaminar space. Lateral views then show placement of the needle in the epidural space. Subsequent views show contrast material flowing superiorly and inferiorly in the epidural space. DSA fluoroscopy with live contrast injection, once again, confirmed no vascular or intrathecal uptake. At this point, using loss of resistance technique with saline and air, the epidural space was entered. Following negative aspiration, injection of approximately 1.5 cc of [id number]-[id number] with live fluoroscopy in the AP view confirmed epidural flow in the epidural space without vascular or intrathecal uptake observed. Subsequently, a test dose of 1 cc of 1% lidocaine solution was injected and patient was observed for two minutes without signs or symptoms of complications, including abdominal pain, shortness of breath, bilateral upper or lower extremity weakness, nausea and vomiting, prior to steroid injection. At this point, 3cc or 30mg of dexamethasone was then injected without incident. The patient tolerated the procedure well without signs or symptoms of complications prior to being transferred to the recovery area for further monitoring, The patient was then transferred to the recovery area where they were observed for an appropriate period of time after the injection. The patient reported a VAS score of 6 prior to the procedure and a post-procedure VAS of 0. POST OP INSTRUCTIONS The patient was provided a Pain Log to continue to record their response to the target-specific procedure prior to follow-up visit with the referring provider. Additionally, specific post-injection care instructions and a contact number to our office were provided if concerns arise regarding possible complications associated with the procedure are suspected.
== END 2022-09-16 10:20 | disposition home or self-care (01) ==
LOC: RAD 08:26
PROVIDERS: Referring Provider Physical Medicine & Rehabilitation; Visit Provider Physical Medicine & Rehabilitation
DX: M48.02 Spinal stenosis, cervical region (principal); M50.123 Cervical disc disorder at C6-C7 level with radiculopathy
CPT/HCPCS: 62321; 99152; J1100; J2250

== ENCOUNTER → 2022-12-27 10:42 | Outpatient (CLI) | payer OTHER, SELFPAY ==
--- NOTE | 2022-12-27 10:43 | DI.MRI.S_ITS ---
PROCEDURE: MR LUMBAR SPINE WO CON INDICATIONS: Progressive axial low back pain TECHNIQUE: Noncontrast sagittal T1 spin echo and T2 fast echo, sagittal STIR, and T2 fast spin echo through the lumbar spine. In cases with scoliosis, additional coronal T2 fast spin echo may be performed. COMPARISON: [facility], , MRI L-SPINE W/O CONTRAST, 08/06/2019, 18:56. [facility], MR, L-SPINE WITHOUT CONTRAST, 08/03/2015, 19:24. FINDINGS: Image quality: Excellent. Alignment and Curvature: There is 19? left convex scoliosis centered at L2. This is increased from the prior MRI dated August 06, 2019 where there was approximately 15? dextroscoliosis. There is trace L3 on L4 retrolisthesis which is unchanged from the 2019 study. Bone Marrow: There is increased reactive endplate changes at L2-3 when compared with the prior study. Marrow signal is otherwise overall normal. Spinal Cord: Conus medullaris terminates at the T12 level. Visualized cord demonstrates normal signal and size. Paraspinous Soft Tissues: No paravertebral masses. T12-L1: Severe disc desiccation and height loss. Broad-based disc bulge. Moderate facet ligamentum flavum hypertrophy. No canal stenosis. Severe right and mild left foraminal stenosis. These findings are unchanged from the prior study. L1-L2: Severe disc desiccation and height loss. Broad-based disc bulge. No canal stenosis. Moderate facet ligamentum flavum hypertrophy. Severe right and mild left foraminal stenosis. Findings are unchanged from the 2019 study. L2-L3: Severe disc desiccation and height loss. Broad-based disc bulge. Moderate facet and ligamentum flavum hypertrophy. No canal stenosis. Severe right and moderate left foraminal stenosis. Findings are unchanged from the prior study. L3-L4: Moderate disc desiccation and height loss. Moderate facet and ligamentum flavum hypertrophy. Mild canal stenosis. Trace retrolisthesis. Moderate bilateral neural foraminal stenosis. The degree of neural foraminal narrowing and stenosis is slightly increased from the prior study. L4-L5: Moderate disc desiccation and height loss. Severe facet and ligamentum flavum hypertrophy. Severe canal stenosis. Severe bilateral neural foraminal stenosis. Findings have all increased in severity when compared with the prior study. L5-S1: Mild disc desiccation and height loss. Severe facet and ligamentum flavum hypertrophy. No canal stenosis. Moderate to severe bilateral foraminal stenosis. The degree of neural foraminal narrowing has slightly increased from the prior study. IMPRESSION: 1. Increased levoscoliosis when compared with the study dated August 06, 2019. 2. Multilevel moderate to severe disc desiccation and height loss, broad-based disc bulges, and facet and ligamentum flavum hypertrophy. The degree of canal stenosis at L3-4 and L4-5 is increased when compared with the prior study. There is now severe canal stenosis at L4-5. 3. Increased foraminal stenosis, moderate in degree at L3-4. 4. Increased foraminal stenosis, severe in degree at L4-5. 5. Increased foraminal stenosis, moderate to severe in degree at L5-S1. Dictated by: Joyce Manning M.D. on 12/29/2022 at 9:45 Approved by: Joyce Manning M.D. on 12/29/2022 at 9:57
== END ==
PROVIDERS: Referring Provider Physical Medicine & Rehabilitation; Visit Provider Physical Medicine & Rehabilitation
DX: M47.817 Spondylosis without myelopathy or radiculopathy, lumbosacral region (principal); M41.9 Scoliosis, unspecified; M48.061 Spinal stenosis, lumbar region without neurogenic claudication; M48.07 Spinal stenosis, lumbosacral region; M51.36 Other intervertebral disc degeneration, lumbar region
CPT/HCPCS: 72148

== ENCOUNTER 2023-02-03 13:23 | Outpatient (CLI) | payer OTHER, SELFPAY ==
[2023-02-03] VITALS (8 sets, daily range): BP systolic 115–135; BP diastolic 7–77; PULSE 58–76; RESP 12–20; TEMP 36.7; O2SAT 94–98
[2023-02-03] MEDS: MIDAZOLAM 2 MG/2 ML VIAL IV (14:10)
[2023-02-03] MEDS: BUPIVACAINE 0.5% (PF) 10 ML VIAL 5 ML INJ (14:13)
[2023-02-03] MEDS: IOPAMIDOL 15 ML VIAL 3 ML INJ (14:13)
[2023-02-03] MEDS: BETAMETHASONE 30 MG/5 ML MDV 12 MG INJ (14:13)
[2023-02-03] MEDS: LIDOCAINE 1% 20 ML INJ (14:14)
--- NOTE | 2023-02-03 14:30 | P.PCN_ITS ---
Date/Time/Diagnoses Date of procedure: 02/03/23 Time of procedure: 14:30 Pre-procedure diagnosis: 1. FACET ARTHROPATHY 2. AXIAL LBP 3. MULTILEVEL DDD Post-procedure diagnosis: same Procedure Notes Procedure: 1. FLUOROSCOPICALLY GUIDED CONTRAST CONTROLLED FACET JOINT INJECTIONS BILATERAL L2/3, L3/4 Indications: Emmanuel is referred for treatment of Axial LBP Physician: Ben Bailey Total Fluoroscopy time (seconds): 10 Total sedation minutes: 13 Complications: none Procedure in detail & Post-procedure care: FINDINGS Multilevel Facet Arthropathy with Clinically significant axial LBP DESCRIPTION OF PROCEDURE Fluoroscopically guided, contrast-controlled bilateral L2/3, L3/4 facet joint injections. Following review of allergy and review of potential side effects and com plications, including, but not necessarily limited to, infection, allergic reaction, local tissue breakdown, stroke, temporary or permanent nerve injury, paralysis, and possible , the patient indicated that the patient understood and agreed to proceed. An informed consent document was signed by the patient, witnessed by a nurse, and placed in the patient's chart. Additionally, other treatment options including medications, modalities, and physical therapy were reviewed with the patient. After review of previous anaesthesic history and IV conscious sedation the patient was deemed safe to proceed with today's procedure with IV conscious sedation as ASA class II designation. Safety time-out was performed to confirm patient ID, procedure to be performed and site of procedure. IV sedation was accomplished with a combination of 2mg of Versed administered by the RN after DO order, titrated to patient comfort during the course of the procedure while the patient remained responsive to all verbal commands In the prone position, following sterile prep and drape of the lumbar region, the posterior aspect of the L2/3, L3/4 facet joints were identified fluoroscopically. The skin was anesthetized via a 25-gauge 1.5-inch needle with 1% lidocaine solution into the corresponding facet joints. At this point, a 22- gauge 3.5-inch spinal needle was atraumatically introduced and advanced under fluoroscopic guidance into the corresponding facet joints. Following negative aspiration, injections of approximately 0.2cc of Isovue 200 confirmed interarticular placement without vascular uptake. The identical procedure was then performed at the L2/3, L3/4 facet joints on the left. Radiological data, including multiple fluoroscopic views of the lumbosacral spine, reveal a spinal needle at the L2/3, L3/4 facet joints bilaterally. Subsequent views show flow of contrast material both superiorly and inferiorly within the joint space without vascular or intrathecal uptake. At this point, a total of 0.5cc including a mixture of 0.25cc Marcaine and 0.25cc betamethasone was injected without complication into each of the corresponding facet joints. The patient tolerated the procedure well without signs or symptoms of complications prior to transfer to the recovery area continued monitoring without incident. The patient was then transferred to the recovery area where they were observed for an appropriate period of time after the injection. The patient reported a VAS score of 7 prior to the procedure and a post-procedure VAS of 0. POST OP INSTRUCTIONS The patient was provided a Pain Log to continue to record their response to the target-specific procedure prior to follow-up visit with their referring physician. Additionally, specific post-injection care instructions and a contact number to our office were provided if concerns arise regarding possible complications associated with the procedure are suspected.
--- NOTE | 2023-02-03 14:32 | DI.RAD.S_ITS ---
PROCEDURE: PAIN L/S FACET INJ/BLK 1ST [facility] COMPARISON: [facility], MR, MR LUMBAR SPINE WO CON, 12/27/2022, 11:02. INDICATIONS: SPONDYLOSIS FINDINGS: Fluoroscopic spot filming was performed to verify placement of spinal needles on both sides at the L2-L3 and L3-L4 levels, as labeled on the films. Appropriate location of the needle tips was confirmed by injection of iodinated contrast. IMPRESSION: Intraprocedural examination demonstrating appropriate positions of the needles. Dictated by: Adam Hart M.D. on 02/03/2023 at 17:07 Approved by: Adam Hart M.D. on 02/03/2023 at 17:07
== END 2023-02-03 14:40 | disposition home or self-care (01) ==
LOC: RAD 13:24
PROVIDERS: Referring Provider Physical Medicine & Rehabilitation; Visit Provider Physical Medicine & Rehabilitation
DX: M47.816 Spondylosis without myelopathy or radiculopathy, lumbar region (principal); M51.36 Other intervertebral disc degeneration, lumbar region
CPT/HCPCS: 64493; 64494; 99152; J0702; J2250

== ENCOUNTER 2023-05-05 08:09 | Outpatient (CLI) | payer OTHER, SELFPAY ==
[2023-05-05] VITALS (8 sets, daily range): BP systolic 114–134; BP diastolic 70–85; PULSE 59–75; RESP 12–24; TEMP 36.4; O2SAT 95–97
--- NOTE | 2023-05-05 08:10 | DI.RAD.S_ITS ---
PROCEDURE: PAIN L/S FACET INJ/BLK 1ST [facility] COMPARISON: [facility], , PAIN L/S FACET INJ/BLK 1ST [facility], 02/03/2023, 14:13. INDICATIONS: SPONDYLOSIS FINDINGS: Fluoroscopic spot filming was performed to verify placement of spinal needles on both sides at the L2, L3, and L4 levels, as labeled on the films. Appropriate location of the needle tips was confirmed by injection of iodinated contrast. IMPRESSION: Intraprocedural examination demonstrating appropriate positions of the needles. Dictated by: Adam Hart M.D. on 05/05/2023 at 14:16 Approved by: Adam Hart M.D. on 05/05/2023 at 14:17
[2023-05-05] MEDS: MIDAZOLAM 2 MG/2 ML VIAL IV (08:50)
[2023-05-05] MEDS: IOPAMIDOL 15 ML VIAL 3 ML INJ (08:58)
[2023-05-05] MEDS: BUPIVACAINE 0.5% (PF) 10 ML VIAL 2 ML INJ (08:58)
[2023-05-05] MEDS: LIDOCAINE 1% 20 ML 5 ML INJ (08:58)
--- NOTE | 2023-05-05 09:11 | PM.PROC.IR.1 ---
Date/Time/Diagnoses Date of procedure: 05/05/23 Time of procedure: 09:11 Pre-procedure diagnosis: FACET ARTHROPATHY Post-procedure diagnosis: same Procedure Notes Procedure: 1. BILATERAL L2, L3, L4 DIAGNOSTIC MB BLOCKS Indications: Emmanuel is referred for treatment of Bilateral Axial LBP. Physician: Ben Bailey Total Fluoroscopy time (seconds): 15 Total sedation minutes: 16 Complications: none Procedure in detail & Post-procedure care: DESCRIPTION OF PROCEDURE Fluoroscopically guided, contrast-controlled bilateral L2, L3, L4 medial branch blocks with 0.5cc of 0.5% Marcaine. Following review of allergy and review of potential side effects and complications, including, but not necessarily limited to, infection, allergic reaction, local tissue breakdown, nerve injury, paralysis, stroke and possible , the patient indicated that the patient understood and agreed to proceed. An informed consent document was signed by the patient, witnessed by a nurse, and placed in the patient's chart. After review of previous anaesthesic history and IV conscious sedation the patient was deemed safe to proceed with today's procedure with IV conscious sedation as ASA class II designation. Safety time-out was performed to confirm patient ID, procedure to be performed and site of procedure. IV sedation was accomplished with a combination of 2mg of Versed was administered by the RN after DO order, titrated to patient comfort during the course of the procedure while the patient remained responsive to all verbal commands In the prone position, following sterile prep and drape of the lumbar region, the right L2, L3, L4 anatomical location of the medial branch of the dorsal ramus was identified fluoroscopically. Subsequently an anesthetic skin wheal using 1% lidocaine solution was initiated at each of the anatomical spots. Subsequently then a 22-gauge 3.5-inch spinal needle was atraumatically introduced and advanced under fluoroscopic guidance at each of the corresponding sites at the right L2, L3, L4 MB. After negative aspiration, 0.2cc of Isovue 200 was injected, confirming placement without vascular or intrathecal uptake. Subsequently then 0.5cc of 0.5% Marcaine solution was injected at each of the corresponding sites at the right L2, L3, L4 medial branch locations. The identical procedure was replicated on the left. The patient tolerated the procedure well without signs or symptoms of complications. The patient tolerated the procedure well without signs or symptoms of complications prior to transfer to the recovery area continued monitoring without incident. Post-procedure, the patient was monitored initiating provocative activities to measure the amount of relief from block of the facetogenic pain. The patient reported a VAS of 6 prior to the procedure and a post-procedure VAS of 1. It has been a pleasure to assist in the diagnostic and therapeutic care of your patient. POST OP INSTRUCTIONS The patient was provided with a Pain Log to complete over the next several hours and subsequent days prior to the patient's follow up with the ordering physician. If the patient has automobile salesman relief to the solution applied, then they may be a candidate for medial branch rhizotomy. The patient is aware, was provided, once again, with a Pain Log and will follow up with the referring physician for review and clinical correlation
== END 2023-05-05 09:20 | disposition home or self-care (01) ==
LOC: RAD 08:10
PROVIDERS: Referring Provider Physical Medicine & Rehabilitation; Visit Provider Physical Medicine & Rehabilitation
DX: M47.816 Spondylosis without myelopathy or radiculopathy, lumbar region (principal)
CPT/HCPCS: 64493; 64494; 99152; J2250

== ENCOUNTER 2023-08-18 14:15 | Outpatient (CLI) | payer OTHER, SELFPAY ==
[2023-08-18] VITALS (8 sets, daily range): BP systolic 108–138; BP diastolic 61–86; PULSE 63–78; RESP 12–20; TEMP 36.7; O2SAT 95–98
--- NOTE | 2023-08-18 15:00 | DI.RAD.S_ITS ---
PROCEDURE: PAIN L/S FACET INJ/BLK 1ST [facility] INDICATIONS: FACET ARTHROPATHY COMPARISON: [facility], XR LUMBAR SPINE MIN 4V, 09/21/2019, 13:06. MR, MR LUMBAR SPINE WO CON, 12/27/2022, 11:02. FINDINGS: Fluoroscopic spot filming was performed to verify placement of spinal needles at the L2, L3 and L4 level(s), as labeled on the films. Appropriate location(s) of the needle tip(s) was confirmed by injection of iodinated contrast. IMPRESSION: Fluoroscopy for pain management. Dictated by: Adán Benavides M.D. on 08/18/2023 at 16:05 Approved by: Adán Benavides M.D. on 08/18/2023 at 16:06
[2023-08-18] MEDS: MIDAZOLAM 2 MG/2 ML VIAL IV (15:37)
[2023-08-18] MEDS: iopamidoL 15 ML VIAL 3 ML INJ (15:42)
[2023-08-18] MEDS: LIDOCAINE 1% 20 ML 5 ML INJ (15:42)
[2023-08-18] MEDS: LIDOCAINE 2% INJ SDV 5ML 10 ML INJ (15:44)
--- NOTE | 2023-08-18 15:57 | P.PCN_ITS ---
Date/Time/Diagnoses Date of procedure: 08/18/23 Time of procedure: 15:57 Pre-procedure diagnosis: 1. FACET ARTHROPATHY Post-procedure diagnosis: same Procedure Notes Procedure: 1. BILATERAL L2, L3, L4 DIAGNOSTIC MB BLOCKS Indications: Emmanuel is referred for treatment of Bilateral Axial LBP. Physician: Ben Bailey Total Fluoroscopy time (seconds): 12 Total sedation minutes: 14 Complications: none Procedure in detail & Post-procedure care: DESCRIPTION OF PROCEDURE Fluoroscopically guided, contrast-controlled bilateral L2, L3, L4 medial branch blocks with 0.5cc of 2% Lidocaine. Following review of allergy and review of potential side effects and complications, including, but not necessarily limited to, infection, allergic reaction, local tissue breakdown, nerve injury, paralysis, stroke and possible , the patient indicated that the patient understood and agreed to proceed. An informed consent document was signed by the patient, witnessed by a nurse, and placed in the patient's chart. After review of previous anaesthesic history and IV conscious sedation the patient was deemed safe to proceed with today's procedure with IV conscious sedation as ASA class II designation. Safety time-out was performed to confirm patient ID, procedure to be performed and site of procedure. IV sedation was accomplished with a combination of 2mg of Versed was administered by the RN after DO order, titrated to patient comfort during the course of the procedure while the patient remained responsive to all verbal commands In the prone position, following sterile prep and drape of the lumbar region, the right L2, L3, L4 anatomical location of the medial branch of the dorsal ramus was identified fluoroscopically. Subsequently an anesthetic skin wheal using 1% lidocaine solution was initiated at each of the anatomical spots. Subsequently then a 22-gauge 3.5-inch spinal needle was atraumatically introduced and advanced under fluoroscopic guidance at each of the corresponding sites at the right L2, L3, L4 MB. After negative aspiration, 0.2cc of Isovue 200 was injected, confirming placement without vascular or intrathecal uptake. Subsequently then 0.5cc of 2% Lidocaine solution was injected at each of the corresponding sites at the right L2, L3, L4 medial branch locations. The identical procedure was replicated on the left. The patient tolerated the procedure well without signs or symptoms of complications. The patient tolerated the procedure well without signs or symptoms of complications prior to transfer to the recovery area continued monitoring without incident. Post-procedure, the patient was monitored initiating provocative activities to measure the amount of relief from block of the facetogenic pain. The patient reported a VAS of 7 prior to the procedure and a post-procedure VAS of 1. It has been a pleasure to assist in the diagnostic and therapeutic care of your patient. POST OP INSTRUCTIONS The patient was provided with a Pain Log to complete over the next several hours and subsequent days prior to the patient's follow up with the ordering physician. If the patient has physical meteorologist relief to the solution applied, then they may be a candidate for medial branch rhizotomy. The patient is aware, was provided, once again, with a Pain Log and will follow up with the referring physician for review and clinical correlation
== END 2023-08-18 16:12 | disposition home or self-care (01) ==
LOC: RAD 14:16
PROVIDERS: Referring Provider Physical Medicine & Rehabilitation; Visit Provider Physical Medicine & Rehabilitation
DX: M47.816 Spondylosis without myelopathy or radiculopathy, lumbar region (principal)
CPT/HCPCS: 64493; 64494; 99152; J2250

== ENCOUNTER → 2024-01-14 10:34 | Outpatient (CLI) | payer OTHER, SELFPAY ==
[2024-01-14] VITALS (14 sets, daily range): BP systolic 52–121; BP diastolic 25–88; PULSE 22–77; RESP 11–16; TEMP 36.2; O2SAT 97–100
--- NOTE | 2024-01-14 11:15 | DI.RAD.S_ITS ---
PROCEDURE: PAIN L/S MED/LAT N RFA BILAT INDICATIONS: Bilateral L2-L3 and L4 medial branch RFA COMPARISON: None. FINDINGS: Fluoroscopic spot filming was performed to verify placement of spinal needles at the L2, L3, and L4 bilateral medial branch level(s), as labeled on the films. IMPRESSION: Fluoroscopic imaging utilized for multilevel bilateral lumbar rhizotomy Dictated by: Jaskaran Rhodes M.D. on 01/14/2024 at 16:38 Approved by: Jaskaran Rhodes M.D. on 01/14/2024 at 16:55
[2024-01-14] MEDS: fentaNYL 100 MCG/2 ML INJ 50 MCG IV (12:06)
[2024-01-14] MEDS: MIDAZOLAM 2 MG/2 ML VIAL 1 MG IV (12:06)
[2024-01-14] MEDS: LIDOCAINE 1% 20 ML 5 ML INJ (12:10)
[2024-01-14] MEDS: BUPIVACAINE 0.5% (PF) 10 ML VIAL 5 ML INJ (12:11)
[2024-01-14] MEDS: SODIUM CHLORIDE 0.9% 500 ML 1000 ML IV (12:37)
[2024-01-14] MEDS: NALOXONE 0.4 MG/ML VIAL IV (12:41)
--- NOTE | 2024-01-14 14:13 | PC.NURSE ---
Patient given 1mg versed IV and 50mcg fentanyl IV at 1206 for sedation by this nurse at start of procedure. Patient's vital signs responded appropriately initially. VS taken every 5 minutes and at 1236 patient's BP and HR was noted to have dropped significantly. His BP and HR were immediately retaken and it was still low. 500mL 0.9% NACL Bolus was started at 1237 per verbal order from Dr. Bailey. Patient's BP was taken every minute after 1236 and was still trending down. Dr. Bailey gave a verbal order for naloxone 0.4 mg IV at 1241 and it was given by this nurse. Edwin Pichardo was also called at 1241. A verbal order for Atropine IV was given by Dr. Bailey; however, the code team arrived before administration and it was not given by this RN. Patient transferred to the stretcher and transported to the ER by the code team.
--- NOTE | 2024-01-14 15:43 | PC.NURSE ---
Addendum to previous note: Patient was awake and responsive (appropriately) during the entire procedure and was also responsive with the Code Blue team upon their arrival and transfer of care to them. Patient was also able to assist in his transfer from the prone position on the procedure table to the supine position on the stretcher (patient was log rolled from procedure bed to stretcher).
--- NOTE | 2024-01-14 16:40 | P.PCN_ITS ---
Date/Time/Diagnoses Date of procedure: 01/14/24 Time of procedure: 12:30 Pre-procedure diagnosis: 1. RECALCITRANT FACET ARTHROPATHY Post-procedure diagnosis: same Procedure Notes Procedure: 1. BILATERAL L2, L3, L4 MEDIAL BRANCH RADIOFREQUENCY NEUROTOMY Indications: Emmanuel is referred for treatment of facet arthropathy. Physician: Ben Bialey Total Fluoroscopy time (seconds): 15 Total sedation minutes: 34 Complications: none Procedure in detail & Post-procedure care: DESCRIPTION OF PROCEDURE Bilateral L2, L3, L4 medial branch radiofrequency neurotomy The patient is well known to this clinic having undergone previous facet injections with good but temporary relief. The patient has experienced appropriate, concordant relief with previous facet and median branch blocks but the patient's pain has been recalcitrant to further conservative measures. Therefore, based upon the patient's relief and persistent symptoms, the patient is considered an appropriate candidate for facet rhizotomy. All of the patient's questions regarding the risks versus benefits of the procedure, including, but not limited to, bleeding, infection, temporary as well as lasting nerve injury, paralysis, stroke, and , as well treatment alternatives were answered to satisfaction. After obtaining informed consent, denial of pertinent drug allergies, as well as being made aware of the potential risks of bleeding, infection, spinal cord trauma, paralysis, temporary and permanent nerve damage, seizure, stroke, and possible , the patient was brought to the fluoroscopy suite and positioned prone on the fluoroscopy table. After review of previous anaesthesic history and IV conscious sedation the patient was deemed safe to proceed with today's procedure with IV conscious sedation as ASA class II designation. Safety time-out was performed to confirm patient ID, procedure to be performed and site of procedure. IV sedation was accomplished with a combination of 1mg of Versed and 50mcg of Fentanyl adm inistered by the RN after DO order, titrated to patient comfort during the course of the procedure while the patient remained responsive to all commands in till the last 5 minutes to the procedure. At that time he became bradycardic and hypotensive. IV fluids as well as Narcan were administered accordingly. Although he remained responsive to commands a code was called and assistance provided by the ER department. He was transferred to the department and within minutes without further intervention return to normal vital signs without residual. Cardiac laboratory studies were completed as well as an EKG without event. He and his were fully informed of the adverse event with the use of the fentanyl and all their questions answered to the best my ability. Please see the nursing note as well as the ER note for full details. Otherwise the procedure had been completed as clinically indicated. The lumbar region was prepped in usual sterile fashion and covered with a fenestrated drape in the usual sterile fashion. Appropriate monitors applied including pulse oximeter, pulse, and blood pressure for regular monitoring throughout the procedure. After local infiltration using 1% lidocaine, under fluoroscopic guidance, a 10- cm RF insulated needle with a 10-mm active tip was positioned parallel to the junction of the right the superior articulating process where the L4 medial branch resides. Needle placement was confirmed with motor stimulation of .5v on the right which produced local stimulation without radicular component. The stimulation was then increased to 2v with, once again, only local multifidus stimulation without radicular component. The needle was then removed and the identical procedure was performed along the length of the right L3 medial branch with motor stimulation at .7v on the right. The identical procedure was once again performed along the length of the right L2 and medial branch with motor stimulation of .5v on the right. The medial branches were then anesthetised with 0.5% marcaine. This was then followed by two discreet lesions performed at 80 degrees Celsius for 90 seconds each. The identical procedures were repeated on the left. Please see the above adverse medication event as further documented in the nursing as well as ER documentation. This appeared to be related to a gradual effect associated with the use of fentanyl during the procedure. Upon reversal of the fentanyl he return to normal without signs of any residual cardiovascular or neurological affect. As stated above this was fully documented as well as communicated to both the patient and his . All their questions were answered to the best my ability and Emmanuel was pleased that we had completed the RFA procedure as stated above prior to the above-stated adverse medication related event. He is looking forward to relief regarding his chronic progressive low back pain. POST OP INSTRUCTIONS The patient was provided a Pain Log to continue to record the patient's response to the target-specific procedure prior to the patient's follow-up visit with the referring physician. Additionally, specific post-injection care instructions and a contact number to our office were provided if concerns arise regarding possible complications associated with the procedure are suspected.
== END ==
PROVIDERS: Referring Provider Physical Medicine & Rehabilitation; Visit Provider Physical Medicine & Rehabilitation
DX: M47.816 Spondylosis without myelopathy or radiculopathy, lumbar region (principal)
CPT/HCPCS: 64635; 64636; 99152; 99153; J2250; J2310; J3010

== ENCOUNTER 2024-01-14 12:48 | Emergency (ER) | payer OTHER, SELFPAY ==
[2024-01-14] VITALS (13 sets, daily range): BP systolic 110–126; BP diastolic 65–81; PULSE 57–68; RESP 7–19; TEMP 36.2; O2SAT 97–100; BMI 32.1
--- NOTE | 2024-01-14 12:50 | ED.AMS ---
HPI - Altered Mental Status General Chief Complaint: Syncope Stated Complaint: syncopal episode in IR during procedure Time Seen by Provider: 01/14/24 12:49 History of Present Illness HPI narrative: Patient 58-year-old male since today is code blue from IR. He was having a spinal procedure which is not new for him he frequently gets injections. He had 10 of Valium prior to the procedure he had 1 of Versed and fentanyl during the procedure. He became hypotensive bradycardic. He was always awake alert and responsive he received Narcan. However heart rate decreased to 18 with a blood pressure of systolic 52. Code blue was called but chest compressions never started and never fully lost pulses. Patient was initially supine, was turned prone heart rate blood pressure started to improve but was brought down to the ED for full evaluation. He continues to be awake alert and answering questions appropriately. He denies any chest pain no numbness tingling or weakness Related Data Home Medications Medication Instructions Recorded Confirmed acetaminophen 500 mg capsule 500 mg PO TID-QID PRN 09/21/19 12/09/23 ascorbic acid (vitamin C) 250 mg 240 mg PO DAILY 09/21/19 12/09/23 chewable tablet fiber well 5 gram PO DAILY 09/21/19 12/09/23 glucos sul [id number]-C-Mn PO DAILY 09/21/19 12/09/23 [Glucosamine Chondroitin] losartan 50 mg tablet 50 mg PO DAILY 09/21/19 12/09/23 multivitamin 1 cap PO DAILY 09/21/19 12/09/23 hydrochlorothiazide 12.5 mg tablet 12.5 mg PO DAILY 09/08/22 12/09/23 Previous Rx's Medication Instructions Recorded tamsulosin 0.4 mg capsule 0.4 mg PO DAILY #30 caps 03/31/20 diazepam 10 mg tablet (Valium) 10 mg PO .COMPLEX #10 tabs 12/09/23 tramadol 50 mg tablet 50 mg PO TID PRN pain #30 tabs 12/09/23 gabapentin 300 mg capsule 600 mg (2 x 300 mg) PO TID #180 01/08/24 caps Allergies Allergy/AdvReac Type Severity Reaction Status Date / Time fentanyl AdvReac Severe Hypotension Uncoded 01/14/24 16:02 Patient History Medical History History of ETOH abuse Cervical radiculopathy Herniated nucleus pulposus, C6-7 Scoliosis Facet arthropathy, lumbosacral Surgical History History of hernia repair History of wisdom tooth extraction Status post excision of lipoma Status post right foot surgery History of thumb surgery History of hernia surgery Family History Father No problems noted. Mother Hypertension Social History marital status: Smoking Status: Former smoker alcohol intake: former substance use type: does not use Smoking Status: Former smoker Substance Use Type: does not use Exam Initial Vital Signs Initial Vital Signs: Vital Signs Temperature 97.2 F L 01/14/24 12:50 Pulse Rate 68 01/14/24 12:50 Respiratory Rate 15 01/14/24 12:50 Blood Pressure 110/65 01/14/24 12:50 Pulse Oximetry 97 01/14/24 12:50 Oxygen Delivery Method Room Air 01/14/24 12:50 GENERAL: [Well-appearing, well-nourished] and in [no acute] distress. HEENT: Head atraumatic,EOMI, pupils reactive, face symmetric, [moist] mucous membranes CARDIOVASCULAR: Regular rate and rhythm without murmurs, rubs or gallops. RESPIRATORY: Breath sounds equal bilaterally, no wheezes rales or rhonchi. ABDOMEN: Soft, nontender. Normoactive bowel sounds all 4 quadrants. No guarding or rebound. EXTREMITIES: Normal range of motion, no clubbing or edema. Neurovascularly intact NEUROLOGICAL: Alert and oriented x4.Normal gait and speech. Cranial nerves II through XII grossly intact. SKIN: Warm, dry, no laceration, no petechiae, no rashes or lesions. Course Orders Ordered: ED Orders 01/14/24 12:50 EKG-12 Lead Stat 01/14/24 12:54 Complete Blood Count AUTO DIFF Stat Comprehensive Metabolic Panel Stat Lipase Stat Troponin & CK Cardiac Panel Stat Discontinued Medications Sodium Chloride (Normal Saline 0.9%) 1,000 mls @ 1,000 mls/hr IV CONT GARY Last Infusion: 01/14/24 14:16 Dose: Infused Documented By: Admin: 01/14/24 12:58 Dose: 1,000 mls/hr Documented By: SHEELA Vital Signs Vital signs: Vital Signs - 8 hr 01/14/24 12:50 01/14/24 12:51 01/14/24 12:55 Temperature 97.2 F L Pulse Rate 68 65 Respiratory Rate 15 17 Blood Pressure 110/65 114/72 Pulse Oximetry 97 99 Oxygen Delivery Method Room Air 01/14/24 12:55 01/14/24 13:00 01/14/24 13:00 Temperature Pulse Rate 66 66 Respiratory Rate 19 19 Blood Pressure 118/76 Pulse Oximetry 100 98 Oxygen Delivery Method 01/14/24 13:05 01/14/24 13:05 01/14/24 13:10 Temperature Pulse Rate 63 63 Respiratory Rate 13 14 Blood Pressure 115/74 Pulse Oximetry 99 99 Oxygen Delivery Method 01/14/24 13:10 01/14/24 13:15 01/14/24 13:15 Temperature Pulse Rate 61 Respiratory Rate 17 Blood Pressure 118/74 118/75 Pulse Oximetry 100 Oxygen Delivery Method 01/14/24 13:20 01/14/24 13:20 01/14/24 13:25 Temperature Pulse Rate 60 59 L Respiratory Rate 13 7 L Blood Pressure 115/70 Pulse Oximetry 98 99 Oxygen Delivery Method 01/14/24 13:25 01/14/24 13:30 01/14/24 13:30 Temperature Pulse Rate 60 Respiratory Rate 13 Blood Pressure 116/73 124/78 Pulse Oximetry 99 Oxygen Delivery Method 01/14/24 13:35 01/14/24 13:35 01/14/24 13:40 Temperature Pulse Rate 57 L Respiratory Rate 12 Blood Pressure 126/81 125/80 Pulse Oximetry 98 Oxygen Delivery Method 01/14/24 13:40 01/14/24 13:45 01/14/24 13:45 Temperature Pulse Rate 60 61 Respiratory Rate 11 L 11 L Blood Pressure 125/77 Pulse Oximetry 100 98 Oxygen Delivery Method MDM - Altered Mental Status Lab Data 01/14/24 12:54 01/14/24 12:54 Labs: Lab Results 01/14/24 Range/Units 12:54 WBC 9.5 (4.5-11.0) X10^3/uL RBC 4.65 (4.5-5.9) X10^6/uL Hgb 14.2 (13.5-17.5) g/dL Hct 41.6 (41-53) % MCV 89.5 (80-100) fL MCH 30.6 (26-34) PG MCHC 34.2 (30-36) % RDW 12.8 (11.6-14.8) % Plt Count 283 (150-400) X10^3/uL Neut % (Auto) 54.2 (50-75) % Lymph % (Auto) 30.4 (25-40) % [place] % (Auto) 8.7 (3-14) % Eos % (Auto) 6.1 H (2-4) % Baso % (Auto) 0.6 (0-2) % Neut # (Auto) 5100 (9889-9249) /uL Lymph # (Auto) 2900 (1182-4743) /uL [place] # (Auto) 800 (0-900) /uL Eos # (Auto) 600 H (0-450) /uL Baso # (Auto) 100 (0-100) /uL Sodium 138 (137-145) mmol/L Potassium 3.3 L (3.4-5.1) mmol/L Chloride 107 (98-107) mmol/L Carbon Dioxide 26 (22-32) mmol/L BUN 16 (9-20) mg/dL Creatinine 0.72 (0.66-1.25) mg/dL Estimated GFR > 60 (>60) mL/min BUN/Creatinine Ratio 22.2 H (6-22) Glucose 102 H (70-100) mg/dL Calcium 8.7 (8.4-10.2) mg/dL Total Bilirubin 0.7 (0.2-1.3) mg/dL AST 31 (17-59) IU/L ALT 40 (<50) IU/L Alkaline Phosphatase 77 (38-126) U/L Total Creatine Kinase 216 H (55-170) U/L Troponin I 0.014 (0.01-0.034) ng/mL Total Protein 6.6 (6.3-8.2) g/dL Albumin 4.0 (3.5-5.0) g/dL Globulin 2.6 (1.7-4.1) g/dL Albumin/Globulin Ratio 1.5 (1.0-2.8) Lipase 154 (23-300) U/L ECG Data Interpretation: Normal sinus rhythm rate 66 OH interval 214 QRS [address] changes MDM Narrative Medical decision making narrative: Patient 58-year-old male presents today as a code blue from DI and pain management. I suspect that he had a vasovagal reaction. He was always awake alert and responsive despite severe hypotension and bradycardia. He was repositioned into a prone position heart rate and blood pressure immediately came. CPR was never given. Blood work has been reviewed WBC 9.5, hemoglobin 14.2, hematocrit 41.6, platelets 283, sodium 138, potassium 3.3, chloride 107, carbon dioxide 26, BUN 16 creatinine 0.72, glucose 102 bilirubin 0.7, AST 31, ALT 40, alk-phos 77, troponin negative I suspect patient had a vasovagal reaction with procedure and medication. His you never lost pulses CPR was never started and he remained awake and alert. He reports that he is quite needle phobic and had multiple needle stabs. Once he was repositioned vitals quickly improved. He may in remains awake alert and appropriate. He ambulated in the ED without any sort of significant difficulty. Blood work has been reviewed without any clinical significant abnormalities. He is overall feeling much better. He has no focal deficits no need for any further imaging. Discharge Plan Departure Patient Disposition: Home Clinical Impression: Syncope, vasovagal Instructions: DI for Syncope in Adults (Fainting) Activity Restrictions/Additional Instructions: *You have been diagnosed with vasovagal *What to do: I suspect that you had reaction to medication positioning and possibly needles today. I am glad that you are feeling better. Blood work is overall reassuring *Continue to take medications as directed *Follow up with your primary care provider in 2-3 days or call [phone] *Return to ER if you should have increasing chest pain, shortness of breath or any new, worsening or concerning symptoms Prescriptions: No Action gabapentin 300 mg capsule 600 mg PO TID Qty: 180 2RF tamsulosin 0.4 mg capsule 0.4 mg PO DAILY Qty: 30 0RF losartan 50 mg tablet 50 mg PO DAILY acetaminophen 500 mg capsule 500 mg PO TID-QID PRN fiber well 5 gram PO DAILY multivitamin Capsule 1 cap PO DAILY ascorbic acid (vitamin C) 250 mg tablet,chewable 240 mg PO DAILY glucos sul [id number]-edy-[id number]-C-Mn PO DAILY hydrochlorothiazide 12.5 mg tablet 12.5 mg PO DAILY diazepam [Valium] 10 mg tablet 10 mg PO .COMPLEX MDD 3 tabs Qty: 10 0RF Rx Instructions: 10 mg orally 1-2 for procedure one hour before; tramadol 50 mg tablet 50 mg PO TID PRN (Reason: pain) Qty: 30 1RF Referrals: ProviderKim [Primary Care Provider] - Stand Alone Forms: Patient Portal/API
[2024-01-14] MEDS: SODIUM CHLORIDE 0.9% 1,000 ML 1000 ML IV (12:58)
[2024-01-14 13:02] LABS: Add Manual Diff / Slide Review NO; Basophils Absolute Auto 100 /uL (0-100); Basophils Percent Auto 0.6 % (0-2); Eosinophils Absolute Auto 600 /uL (0-450); Eosinophils Percent Auto 6.1 % (2-4); Hematocrit 41.6 % (41-53); Hemoglobin 14.2 g/dL (13.5-17.5); Lymphocytes Absolute Auto 2900 /uL (1100-4500); Lymphocytes Percent Auto 30.4 % (25-40); Mean Corpuscular HGB Conc 34.2 % (30-36); Mean Corpuscular Hemoglobin 30.6 PG (26-34); Mean Corpuscular Volume 89.5 fL (80-100); Monocytes Absolute Auto 800 /uL (0-900); Monocytes Percent Auto 8.7 % (3-14); Neutrophils Absolute Auto 5100 /uL (1500-7000); Neutrophils Percent Auto 54.2 % (50-75); Platelet Count 283 X10^3/uL (150-400); Red Blood Cell Count 4.65 X10^6/uL (4.5-5.9); Red Cell Distribution Width 12.8 % (11.6-14.8); White Blood Cell Count 9.5 X10^3/uL (4.5-11.0)
--- NOTE | 2024-01-14 13:04 | PC.NURSE ---
Pt a&ox4. Arouses easily and answers all questions appropriately. VS WNL. Pt denies pain, SOB, CP, N/V, dizziness/lightheaded.
[2024-01-14 13:23] LABS: HEMOLYSIS 17 (0-50)
[2024-01-14 13:24] LABS: Alanine Aminotransferase 40 IU/L (<50); Albumin Globulin Ratio 1.5 (1.0-2.8); Alkaline Phosphatase 77 U/L (38-126); Aspartate Aminotransferase 31 IU/L (17-59); BUN Creatinine Ratio 22.2 (6-22); Bilirubin Total 0.7 mg/dL (0.2-1.3); Blood Urea Nitrogen 16 mg/dL (9-20); Calcium 8.7 mg/dL (8.4-10.2); Carbon Dioxide 26 mmol/L (22-32); Chloride 107 mmol/L (98-107); Estimated Glomerular Filt Rate > 60 mL/min (>60); Globulin 2.6 g/dL (1.7-4.1); Potassium 3.3 mmol/L (3.4-5.1); Sodium 138 mmol/L (137-145); Total Protein 6.6 g/dL (6.3-8.2)
[2024-01-14 13:25] LABS: Creatine Kinase 216 U/L (55-170); Glucose 102 mg/dL (70-100); Lipase 154 U/L (23-300)
[2024-01-14 13:27] LABS: Troponin I 0.014 ng/mL (0.01-0.034)
--- NOTE | 2024-01-14 14:17 | PC.NURSE ---
Pt ambulated with steady gait,denies dizziness
== END 2024-01-14 14:24 | disposition home or self-care (01) ==
PROVIDERS: Emergency Provider Emergency Medicine
DX: R55 Syncope and collapse (principal); R00.1 Bradycardia, unspecified; T50.995A Adverse effect of other drugs, medicaments and biological substances, initial encounter
CPT/HCPCS: 36415; 64635; 64636; 80053; 82550; 83690; 84484; 85025; 93005; 93010; 96360; 99152; 99153; 99284; J2250; J2310; J3010

== ENCOUNTER 2024-02-23 09:14 | Outpatient (CLI) | payer OTHER, SELFPAY ==
[2024-02-23] VITALS (8 sets, daily range): BP systolic 118–138; BP diastolic 70–82; PULSE 64–78; RESP 11–18; TEMP 36.6; O2SAT 97–99
--- NOTE | 2024-02-23 09:45 | DI.RAD.S_ITS ---
PROCEDURE: PAIN L/S FACET INJ/BLK 1ST [facility] INDICATIONS: Bilateral L5 and S1 medial branch block LA COMPARISON: Merged With [facility], , PAIN L/S FACET INJ/BLK 1ST [facility], 08/18/2023, 16:40. FINDINGS: Fluoroscopic spot filming was performed to verify placement of spinal needles at the bilateral L5 and S1 level(s), as labeled on the films. Appropriate location(s) of the needle tip(s) was confirmed by injection of iodinated contrast. IMPRESSION: Fluoroscopic guidance for a bilateral medial branch block. Dictated by: Dilan Taylor M.D. on 02/23/2024 at 12:24 Approved by: Dilan Taylor M.D. on 02/23/2024 at 12:24
[2024-02-23] MEDS: MIDAZOLAM 2 MG/2 ML VIAL IV (10:20)
[2024-02-23] MEDS: iopamidoL 15 ML VIAL 3 ML INJ (10:25)
[2024-02-23] MEDS: BUPIVACAINE 0.5% (PF) 10 ML VIAL 2 ML INJ (10:25)
[2024-02-23] MEDS: LIDOCAINE 1% 20 ML 5 ML INJ (10:25)
--- NOTE | 2024-02-23 10:40 | P.PCN_ITS ---
Date/Time/Diagnoses Date of procedure: 02/23/24 Time of procedure: 10:40 Pre-procedure diagnosis: 1. FACET ARTHROPATHY Post-procedure diagnosis: same Procedure Notes Procedure: 1. BILATERAL- L5 and S1 MB BLOCKS Indications: Emmanuel is referred for treatment of Bilateral Axial LBP. Physician: Ben Bailey Total Fluoroscopy time (seconds): 10 Total sedation minutes: 15 Complications: none Procedure in detail & Post-procedure care: DESCRIPTION OF PROCEDURE Fluoroscopically guided, contrast-controlled bilateral L5 and S1 medial branch blocks with 0.5cc of 0.5% Marcaine. Following review of allergy and review of potential side effects and complications, including, but not necessarily limited to, infection, allergic reaction, local tissue breakdown, nerve injury, paralysis, stroke and possible , the patient indicated that the patient understood and agreed to proceed. An informed consent document was signed by the patient, witnessed by a nurse, and placed in the patient's chart. After review of previous anaesthesic history and IV conscious sedation the patient was deemed safe to proceed with today?s procedure with IV conscious sedation as ASA class II designation. Safety time-out was performed to confirm patient ID, procedure to be performed and site of procedure. IV sedation was accomplished with a combination of 2mg of Versed was administered by the RN after DO order, titrated to patient comfort during the course of the procedure while the patient remained responsive to all verbal commands In the prone position, following sterile prep and drape of the lumbar region, the right L5 and S1 anatomical location of the medial branch of the dorsal ramus was identified fluoroscopically. Subsequently an anesthetic skin wheal using 1% lidocaine solution was initiated at each of the anatomical spots. Subsequently then a 22-gauge 3.5-inch spinal needle was atraumatically introduced and advanced under fluoroscopic guidance at each of the corresponding sites at the right L5 and S1 MB. After negative aspiration, 0.2 cc of Isovue 200 was injected, confirming placement without vascular or intrathecal uptake. Subsequently then 0.5 cc of 0.5% Marcaine solution was injected at each of the corresponding sites at the right L5 and S1 medial branch locations. The identical procedure was replicated on the left. The patient tolerated the procedure well without signs or symptoms of complications. The patient tolerated the procedure well without signs or symptoms of complications prior to transfer to the recovery area continued monitoring without incident. Post-procedure, the patient was monitored initiating provocative activities to measure the amount of relief from block of the facetogenic pain. The patient reported a VAS of 7 prior to the procedure and a post-procedure VAS of 1. It has been a pleasure to assist in the diagnostic and therapeutic care of your patient. POST OP INSTRUCTIONS The patient was provided with a Pain Log to complete over the next several hours and subsequent days prior to the patient's follow up with the ordering physician. If the patient has senior communications specialist relief to the solution applied, then they may be a candidate for medial branch rhizotomy. The patient is aware, was provided, once again, with a Pain Log and will follow up with the referring physician for review and clinical correlation.
== END 2024-02-23 11:00 | disposition home or self-care (01) ==
LOC: RAD 09:15
PROVIDERS: Referring Provider Physical Medicine & Rehabilitation; Visit Provider Physical Medicine & Rehabilitation
DX: M47.817 Spondylosis without myelopathy or radiculopathy, lumbosacral region (principal)
CPT/HCPCS: 64493; 64494; 99152; J2250

== ENCOUNTER → 2024-03-28 17:05 | Outpatient (CLI) | payer OTHER, SELFPAY ==
--- NOTE | 2024-03-28 17:06 | DI.MRI.S_ITS ---
PROCEDURE: MR LUMBAR SPINE WO CON INDICATIONS: Spinal stenosis, lumbar w/ neurogenic claudication TECHNIQUE: Noncontrast sagittal T1 spin echo and T2 fast echo, sagittal STIR, and T2 fast spin echo through the lumbar spine. In cases with scoliosis, additional coronal T2 fast spin echo may be performed. COMPARISON: [facility], MR, MR LUMBAR SPINE WO CON, 12/27/2022, 11:02. FINDINGS: Image quality: Excellent. Alignment and Curvature: There is leftward curvature with apex at L2. Scoliotic curvature remains stable at approximately 20?. There is trace retrolisthesis of L2 on L3, L3-L4. Bone Marrow: Marrow is of normal overall signal. Moderate reactive endplate changes are present at L3-4. No acute vertebral body compression fractures. Spinal Cord: Conus medullaris terminates at the L1 level. Visualized cord demonstrates normal signal and size. Paraspinous Soft Tissues: No paravertebral masses. Discs: Moderate to severe multilevel disc desiccation most significant at L2-3. T12-L1: Mild disc bulge with mild spinal stenosis. Severe right and [id number] left foraminal narrowing with facet and ligamentum flavum hypertrophy. No significant interval change. L1-L2: Mild disc bulge with minimal spinal stenosis. Severe right and mild left foraminal narrowing with facet and ligamentum flavum hypertrophy. No significant interval change. L2-L3: Mild disc bulge with minimal canal narrowing. Severe right and moderate to severe left foraminal narrowing with facet and ligamentum flavum hypertrophy. Overall appearance is stable compared to prior exam. L3-L4: Mild disc bulge with mild spinal stenosis. Moderate to severe bilateral foraminal narrowing with facet and ligamentum flavum hypertrophy. No significant oval change. L4-L5: Mild disc bulge with severe spinal stenosis and canal compression. Severe bilateral foraminal narrowing with compression the left exiting L4 nerve roots. Facet and ligamentum flavum hypertrophy are present. No interval change. L5-S1: Mild disc bulge with minimal spinal stenosis. Severe bilateral foraminal narrowing slightly progressive compared to prior exam. Facet and ligamentum flavum hypertrophy are present. IMPRESSION: Multilevel disc bulge, spinal stenosis and foraminal narrowing relatively stable except noting slight interval progression at L5-S1. Multilevel spinal stenosis secondary to disc bulge with contributing effect of facet/ligamentum flavum arthropathy. Multilevel foraminal narrowing overall moderate to severe most significant at L4-5 and L5-S1 secondary to facet arthropathy. Dictated by: Leandra Tinajero M.D. on 03/28/2024 at 20:28 Approved by: Leandra Tinajero M.D. on 03/28/2024 at 20:50
== END ==
PROVIDERS: Referring Provider Neurological Surgery; Visit Provider Neurological Surgery
DX: M48.062 Spinal stenosis, lumbar region with neurogenic claudication (principal); M48.07 Spinal stenosis, lumbosacral region; M51.36 Other intervertebral disc degeneration, lumbar region; M51.37 Other intervertebral disc degeneration, lumbosacral region; M47.816 Spondylosis without myelopathy or radiculopathy, lumbar region; M47.817 Spondylosis without myelopathy or radiculopathy, lumbosacral region
CPT/HCPCS: 72148

== ENCOUNTER → 2024-04-23 11:31 | Outpatient (CLI) | payer OTHER, SELFPAY ==
[2024-04-23 12:56] LABS: BUN Creatinine Ratio 20.3 (6-22); Blood Urea Nitrogen 14 mg/dL (9-20); Calcium 9.5 mg/dL (8.4-10.2); Carbon Dioxide 26 mmol/L (22-32); Chloride 103 mmol/L (98-107); Cholesterol 157 mg/dL (140-199); Estimated Glomerular Filt Rate > 60 mL/min (>60); Glucose 82 mg/dL (70-100); HDL Cholesterol 45 mg/dL (40-60); HEMOLYSIS < 15 (0-50); LDL Cholesterol Calculated 96 mg/dL (<100); Potassium 4.2 mmol/L (3.4-5.1); Sodium 137 mmol/L (137-145); Triglycerides 80 mg/dL (35-150)
[2024-04-23 13:26] LABS: Prostate Specific Antigen Scrn 0.645 ng/mL (0.1-4.0)
[2024-04-23 20:04] LABS: HIV 1 & 2 Ab/Ag 4th Gen Combo NEGATIVE (NEGATIVE); Hep C Virus Ab w/Reflex Quant NEGATIVE s/c (NEGATIVE)
== END ==
PROVIDERS: PCP Family Medicine; Referring Provider Family Medicine; Visit Provider Family Medicine
DX: I10 Essential (primary) hypertension (principal); E87.6 Hypokalemia; Z12.5 Encounter for screening for malignant neoplasm of prostate
CPT/HCPCS: 36415; 80048; 80061; 83036; 86803; 87389; G0103

== ENCOUNTER 2024-05-03 14:28 | Outpatient (CLI) | payer OTHER, SELFPAY ==
[2024-05-03] VITALS (9 sets, daily range): BP systolic 112–126; BP diastolic 57–68; PULSE 58–77; RESP 12–18; TEMP 36.8; O2SAT 95–98
--- NOTE | 2024-05-03 15:15 | DI.RAD.S_ITS ---
PROCEDURE: PAIN L/S FACET INJ/BLK 1ST [facility] INDICATIONS: Bilateral L5 and S1 medial branch block SA COMPARISON: [facility], , PAIN L/S FACET INJ/BLK 1ST [facility], 02/23/2024, 10:25. FINDINGS: Fluoroscopic spot filming was performed to verify placement of spinal needles at the bilateral L5 and S1 level(s), as labeled on the films. Appropriate location(s) of the needle tip(s) was confirmed by injection of iodinated contrast. IMPRESSION: Fluoroscopic guidance utilized for a medial branch block. Dictated by: Dilan Taylor M.D. on 05/03/2024 at 16:48 Approved by: Dilan Taylor M.D. on 05/03/2024 at 16:48
[2024-05-03] MEDS: MIDAZOLAM 2 MG/2 ML VIAL IV (15:20)
[2024-05-03] MEDS: iopamidoL 15 ML VIAL 3 ML INJ (15:28)
[2024-05-03] MEDS: LIDOCAINE 1% 20 ML 5 ML INJ (15:28)
[2024-05-03] MEDS: LIDOCAINE 2% INJ SDV 5ML 10 ML INJ (15:29)
--- NOTE | 2024-05-03 15:37 | P.PCN_ITS ---
Date/Time/Diagnoses Date of procedure: 05/03/24 Time of procedure: 15:37 Pre-procedure diagnosis: 1. FACET ARTHROPATHY Post-procedure diagnosis: same Procedure Notes Procedure: 1. BILATERAL- L5 and S1 DIAGNOSTIC MB BLOCKS with SA Anesthetic Indications: Emmanuel is referred by Dr. Pratt for treatment of Bilateral Axial LBP. Physician: Ben Bailey Total Fluoroscopy time (seconds): 10 Total sedation minutes: 14 Complications: none Procedure in detail & Post-procedure care: DESCRIPTION OF PROCEDURE Fluoroscopically guided, contrast-controlled bilateral L5 and S1 medial branch blocks with 0.5cc of 2% Lidocaine. Following review of allergy and review of potential side effects and complications, including, but not necessarily limited to, infection, allergic reaction, local tissue breakdown, nerve injury, paralysis, stroke and possible , the patient indicated that the patient understood and agreed to proceed. An informed consent document was signed by the patient, witnessed by a nurse, and placed in the patient's chart. After review of previous anaesthesic history and IV conscious sedation the patient was deemed safe to proceed with today's procedure with IV conscious sedation as ASA class II designation. Safety time-out was performed to confirm patient ID, procedure to be performed and site of procedure. IV sedation was accomplished with a combination of 2mg of Versed was administered by the RN after DO order, titrated to patient comfort during the course of the procedure while the patient remained responsive to all verbal commands In the prone position, following sterile prep and drape of the lumbar region, the right L5 and S1 anatomical location of the medial branch of the dorsal ramus was identified fluoroscopically. Subsequently an anesthetic skin wheal using 1% lidocaine solution was initiated at each of the anatomical spots. Subsequently then a 22-gauge 3.5-inch spinal needle was atraumatically introduced and advanced under fluoroscopic guidance at each of the corresponding sites at the right L5 and S1 MB. After negative aspiration, 0.2cc of Isovue 200 was injected, confirming placement without vascular or intrathecal uptake. Subsequently then 0.5cc of 2% Lidocaine solution was injected at each of the corresponding sites at the right L5 and S1 medial branch locations. The identical procedure was replicated on the left. The patient tolerated the procedure well without signs or symptoms of complications prior to transfer to the recovery area continued monitoring without incident. Post-procedure, the patient was monitored initiating provocative activities to measure the amount of relief from block of the facetogenic pain. The patient reported a VAS of 7 prior to the procedure and a post-procedure VAS of 1. It has been a pleasure to assist in the diagnostic and therapeutic care of your patient. POST OP INSTRUCTIONS The patient was provided with a Pain Log to complete over the next several hours and subsequent days prior to the patient's follow up with the ordering physician. If the patient has social work specialist relief to the solution applied, then they may be a candidate for medial branch rhizotomy. The patient is aware, was provided, once again, with a Pain Log and will follow up with the referring physician for review and clinical correlation
== END 2024-05-03 15:59 | disposition home or self-care (01) ==
LOC: RAD 14:30
PROVIDERS: PCP Family Medicine; Referring Provider Physical Medicine & Rehabilitation; Visit Provider Physical Medicine & Rehabilitation
DX: M47.817 Spondylosis without myelopathy or radiculopathy, lumbosacral region (principal)
CPT/HCPCS: 64493; 64494; 99152; J2250

== ENCOUNTER 2024-09-27 07:19 | Outpatient (CLI) | payer OTHER, SELFPAY ==
[2024-09-27] VITALS (11 sets, daily range): BP systolic 112–136; BP diastolic 65–78; PULSE 60–71; RESP 12–20; TEMP 36.1; O2SAT 98–100
--- NOTE | 2024-09-27 07:21 | DI.RAD.S_ITS ---
PROCEDURE: PAIN L/S MED/LAT N RFA BILAT INDICATIONS: Bilateral L5 and S1 MB RFA COMPARISON: [facility], , PAIN L/S MED/LAT N RFA BILAT, 01/14/2024, 12:09. FINDINGS/IMPRESSION: Fluoroscopic spot filming was performed to verify placement of spinal needles at the bilateral L5 and S1 level(s), as labeled on the films. Appropriate location(s) of the needle tip(s) was confirmed by injection of iodinated contrast. Dictated by: Gerard Wilson M.D. on 09/27/2024 at 13:56 Approved by: Gerard Wilson M.D. on 09/27/2024 at 13:57
[2024-09-27] MEDS: MIDAZOLAM 2 MG/2 ML VIAL IV (08:07)
[2024-09-27] MEDS: LIDOCAINE 1% 20 ML 5 ML INJ (08:11)
[2024-09-27] MEDS: BUPIVACAINE 0.5% (PF) 10 ML VIAL 5 ML INJ (08:12)
--- NOTE | 2024-09-27 08:47 | P.PCN_ITS ---
Date/Time/Diagnoses Date of procedure: 09/27/24 Time of procedure: 08:47 Pre-procedure diagnosis: 1. RECALCITRANT FACET ARTHROPATHY Post-procedure diagnosis: same Procedure Notes Procedure: 1. BILATERAL L5 MEDIAL BRANCH RADIOFREQUENCY NEUROTOMY AND BILATERAL S1 DORSAL RAMUS BRANCH RADIOFREQUENCY NEUROTOMY. Indications: Emmanuel is referred by Dr. Pratt for treatment of facet arthropathy. Physician: Ben Bailey Total Fluoroscopy time (seconds): 12 Total sedation minutes: 35 Complications: none Procedure in detail & Post-procedure care: DESCRIPTION OF PROCEDURE Bilateral L5 medial branch radiofrequency neurotomy and bilateral S1 dorsal ramus branch radiofrequency neurotomy under fluoroscopy with conscious sedation. The patient is well known to this clinic having undergone previous facet injections with good but temporary relief. The patient has experienced appropriate, concordant relief with previous facet and median branch blocks but the patient's pain has been recalcitrant to further conservative measures. Therefore, based upon the patient's relief and persistent symptoms, the patient is considered an appropriate candidate for facet rhizotomy. All of the patient's questions regarding the risks versus benefits of the procedure, including, but not limited to, bleeding, infection, temporary as well as lasting nerve injury, paralysis, stroke, and , as well treatment alternatives were answered to satisfaction. After obtaining informed consent, denial of pertinent drug allergies, as well as being made aware of the potential risks of bleeding, infection, spinal cord trauma, paralysis, temporary and permanent nerve damage, seizure, stroke, and possible , the patient was brought to the fluoroscopy suite and positioned prone on the fluoroscopy table. The lumbar region was prepped in usual sterile fashon and covered with a fenestrated drape in the usual sterile fashion. Appropriate monitors applied including pulse oximeter, pulse, and blood pressure for regular monitoring throughout the procedure. After review of previous anaesthesic history and IV conscious sedation the patient was deemed safe to proceed with today?s procedure with IV conscious sedation as ASA class II designation. Safety time-out was performed to confirm patient ID, procedure to be performed and site of procedure. IV sedation was accomplished with a combination of 2mg of Versed was administered by the RN after DO order, titrated to patient comfort during the course of the procedure while the patient remained responsive to all verbal commands. After local infiltration using 1% lidocaine, under fluoroscopic guidance, a 10- cm RF insulated needle with a 10-mm active tip was positioned parallel to the junction of the bilateral sacral ala and the superior articulating process where the S1 dorsal ramus resides. Needle placement was confirmed with motor stimulation of .5v on the right; motor stimulation of .6v on the left, which produced local stimulation without radicular component. The stimulation was then increased to 2v with, once again, only local multifidus stimulation without radicular component. This was then followed by two discreet lesions performed at 80 degrees Celsius for 90 seconds each. The needle was then removed and the identical procedure was performed along the length of the bilateral L5 medial branch with motor stimulation at .7v on the right; motor stimulation at .6v on the left. The patient tolerated the procedure well without signs or symptoms of complications prior to transfer to the recovery area continued monitoring without incident. The patient was then transferred to the recovery area where they were observed for an appropriate period of time after the injection. The patient reported a VAS score of 9 prior to the procedure and a post- procedure VAS of 0. POST OP INSTRUCTIONS The patient was provided a Pain Log to continue to record the patient's response to the target-specific procedure prior to the patient's follow-up visit with the referring physician. Additionally, specific post-injection care instructions and a contact number to our office were provided if concerns arise regarding possible complications associated with the procedure are suspected.
== END 2024-09-27 08:58 | disposition home or self-care (01) ==
PROVIDERS: PCP Family Medicine; Referring Provider Physical Medicine & Rehabilitation; Visit Provider Physical Medicine & Rehabilitation
DX: M47.817 Spondylosis without myelopathy or radiculopathy, lumbosacral region (principal)
CPT/HCPCS: 64635; 64636; 99152; 99153; J2250

== ENCOUNTER → 2024-11-02 15:42 | Outpatient (CLI) | payer OTHER, SELFPAY ==
--- NOTE | 2024-11-02 15:43 | DI.US.S_ITS ---
PROCEDURE: US RENAL COMPLETE INDICATIONS: RIGHT FLANK PAIN TECHNIQUE: Real-time scanning was performed of the kidneys and bladder, with image documentation. COMPARISON: None. FINDINGS: Kidneys: Right kidney measures 11 cm. Left kidney measures 11 cm. Multiple left renal calculi measuring up to 3 mm in the left kidney. No hydronephrosis. Bladder: Both ureteral jets were visualized. Postvoid residual is 25 cc. Miscellaneous: No free pelvic fluid. IMPRESSION: Multiple left nonobstructing renal calculi. No hydronephrosis. Postvoid residual is 25 cc. Dictated by: Mulugeta Hough M.D. on 11/03/2024 at 9:16 Approved by: Mulugeta Hough M.D. on 11/03/2024 at 9:17
[2024-11-02 17:00] LABS: BUN Creatinine Ratio 24.7 (6-22); Blood Urea Nitrogen 18 mg/dL (9-20); Calcium 9.2 mg/dL (8.4-10.2); Carbon Dioxide 28 mmol/L (22-32); Chloride 101 mmol/L (98-107); Estimated Glomerular Filt Rate > 60 mL/min (>60); Glucose 78 mg/dL (70-100); HEMOLYSIS < 15 (0-50); Potassium 3.9 mmol/L (3.4-5.1); Sodium 137 mmol/L (137-145)
[2024-11-02 18:08] LABS: Appearance Urine UA CLEAR; Bilirubin Urine UA NEGATIVE (NEGATIVE); Color Urine UA YELLOW; Glucose Urine UA NEGATIVE (Negative); Ketones Urine UA NEGATIVE (NEGATIVE); Leukocyte Esterase Urine UA NEGATIVE (NEGATIVE); Nitrite Urine UA NEGATIVE (Negative); Occult Blood Urine UA NEGATIVE (Negative); Protein Urine UA NEGATIVE (Negative); Specific Gravity Urine UA <=1.005 (1.000-1.035); Urobilinogen Urine UA 0.2 E.U./dL (0.2)
[2024-11-02 18:14] LABS: Bacteria Urine None Seen; Culture Indicated Urine Cult Not Indicated; RBC Urine None Seen (0-5/HPF); Squamous Epithelial Cell Urine None Seen (0-5/HPF); Urine Volume 10mL (spun); WBC Urine None Seen (0-5/HPF)
== END ==
PROVIDERS: PCP Family Medicine; Referring Provider Physician Assistant; Visit Provider Physician Assistant
DX: N20.0 Calculus of kidney (principal); R10.9 Unspecified abdominal pain
CPT/HCPCS: 36415; 76770; 80048; 81001

== ENCOUNTER → 2024-12-05 17:03 | Outpatient (CLI) | payer OTHER, SELFPAY ==
--- NOTE | 2024-12-05 17:05 | DI.RAD.S_ITS ---
PROCEDURE: XR LUMBAR SPINE 2-3V INDICATIONS: pain TECHNIQUE: 3 views of the lumbar spine were acquired. COMPARISON: [facility], CR, XR LUMBAR SPINE MIN 4V, 09/21/2019, 13:06. FINDINGS: Lumbar spine curvature and alignment: Severe dextroscoliosis of the lower thoracic and lumbar spine is progressed considerably since the comparison examination over 5 years ago. Bones: Moderate right lateral compression fractures of the T12, L1, L2 and L3 vertebral bodies have progressed. Disc spaces: Severe T12-L1 through L3-4 and moderate L4-5 and L5-S1 degenerative disc disease have worsened. Severe L3-4 through L5-S1 degenerative facet disease have also progressed. Soft tissues: No soft tissue swelling, calcification or mass. IMPRESSION: Multilevel degeneration-progressing since exam 5 years ago Right lateral compression fractures T12 through L3 also worsening Dictated by: Nando Gooden M.D. on 12/06/2024 at 11:12 Approved by: Nando Gooden M.D. on 12/06/2024 at 11:14
--- NOTE | 2024-12-05 17:05 | DI.RAD.S_ITS ---
PROCEDURE: XR HIP W PEL IF DONE RT 2V INDICATIONS: pain TECHNIQUE: AP pelvis with lateral view(s) of the right hip(s). COMPARISON: None. FINDINGS: Bones: CAM configuration right femoral head neck junction would predispose to femoral acetabular impingement and labral tears. SI and hip joints: Minimal degeneration present in both SI and hip joints. There is moderate L4-5 and L5-S1 degenerative disc disease. Soft tissues: No soft tissue swelling, calcification or mass. 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 Minimal bilateral SI and hip degeneration. Moderate L4-5 and L5-S1 degenerative disc disease Dictated by: Nando Gooden M.D. on 12/06/2024 at 11:14 Approved by: Nando Gooden M.D. on 12/06/2024 at 11:15
== END ==
PROVIDERS: PCP Family Medicine; Referring Provider Family Medicine; Visit Provider Family Medicine
DX: M25.551 Pain in right hip (principal); M47.816 Spondylosis without myelopathy or radiculopathy, lumbar region; M47.817 Spondylosis without myelopathy or radiculopathy, lumbosacral region; M51.369 Other intervertebral disc degeneration, lumbar region without mention of lumbar back pain or lower extremity pain; M51.379 Other intervertebral disc degeneration, lumbosacral region without mention of lumbar back pain or lower extremity pain; M41.9 Scoliosis, unspecified; M48.55XA Collapsed vertebra, not elsewhere classified, thoracolumbar region, initial encounter for fracture; M54.9 Dorsalgia, unspecified; G89.29 Other chronic pain; Z98.890 Other specified postprocedural states
CPT/HCPCS: 72100; 73502

== ENCOUNTER → 2025-05-08 09:00 | Outpatient (CLI) | payer OTHER, SELFPAY ==
[2025-05-08 09:51] LABS: Hematocrit 39.9 % (41-53); Hemoglobin 13.7 g/dL (13.5-17.5); Mean Corpuscular HGB Conc 34.4 % (30-36); Mean Corpuscular Hemoglobin 31.4 PG (26-34); Mean Corpuscular Volume 91.4 fL (80-100); Platelet Count 227 X10^3/uL (150-400)
[2025-05-08 10:29] LABS: Alanine Aminotransferase 37 IU/L (<50); Albumin 4.4 g/dL (3.5-5.0); Albumin Globulin Ratio 2.1 (1.0-2.8); Alkaline Phosphatase 87 U/L (38-126); Blood Urea Nitrogen 22 mg/dL (9-20); Calcium 9.4 mg/dL (8.4-10.2); Carbon Dioxide 28 mmol/L (22-32); Chloride 104 mmol/L (98-107); Cholesterol 162 mg/dL (140-199); Estimated Glomerular Filt Rate > 60 mL/min (>60); Globulin 2.1 g/dL (1.7-4.1); Glucose 91 mg/dL (70-99); HDL Cholesterol 58 mg/dL (40-60); HEMOLYSIS < 15 (0-50); Potassium 4.3 mmol/L (3.4-5.1); Sodium 139 mmol/L (137-145); Total Protein 6.5 g/dL (6.3-8.2); Triglycerides 43 mg/dL (35-150)
[2025-05-09 15:08] LABS: HIV 1 & 2 Ab/Ag 4th Gen Combo NEGATIVE (NEGATIVE); Hep C Virus Ab w/Reflex Quant NEGATIVE s/c (NEGATIVE)
[2025-05-16 01:38] LABS: Percent Free Testosterone 1.70 % (1.50-4.20)
== END ==
PROVIDERS: PCP Family Medicine; Referring Provider Family Medicine; Visit Provider Family Medicine
DX: Z00.00 Encounter for general adult medical examination without abnormal findings (principal); I10 Essential (primary) hypertension; R53.82 Chronic fatigue, unspecified; R06.81 Apnea, not elsewhere classified
CPT/HCPCS: 36415; 80053; 80061; 84402; 84403; 85027; 86803; 87389